=== PATIENT | female | born 1950 | race Caucasian/White ===

== ENCOUNTER → 2020-06-04 | Outpatient (REF) | payer MEDICARE ==
[2020-06-04 14:04] LABS: APPEARANCE, URINE HAZY (CLEAR); BACTERIA, URINE AUTO 1+ (NEGATIVE); BILIRUBIN, URINE AUTO NEGATIVE (NEGATIVE); BLOOD, URINE BLOOD NEGATIVE (NEGATIVE); COLOR, URINE YELLOW (YELLOW); GLUCOSE, URINE (UA) AUTO NEGATIVE (NEGATIVE); KETONE, URINE AUTO NEGATIVE (NEGATIVE); LEUKOCYTE ESTERASE, URINE AUTO 3+ (NEGATIVE); NITRITE, URINE AUTO NEGATIVE (NEGATIVE); PROTEIN, URINE AUTO NEGATIVE (NEGATIVE); RBC, URINE AUTO 3 /HPF (0-3); SPECIFIC GRAVITY URINE AUTO 1.004 (1.002-1.035); SQUAMOUS EPITHELIAL CELL UR AU 4 /HPF (0-6); UROBILINOGEN, URINE AUTO 0.2 mg/dL (0.0-2.0); WBC, URINE AUTO 72 /HPF (0-3)
== END ==
LOC: M SFHCPLAZ 09:58
PROVIDERS: ATTEND Physician Assistant Medical
DX: R30.0 Dysuria (principal); E66.9 Obesity, unspecified; I10 Essential (primary) hypertension; Z13.1 Encounter for screening for diabetes mellitus; Z13.220 Encounter for screening for lipoid disorders

== ENCOUNTER → 2020-06-05 | Outpatient (REF) | payer MEDICARE ==
[2020-06-05 18:07] LABS: BASO % 0.4 % (0.0-1.0); EOS # 0.1 10^3/uL (0.0-0.5); EOS % 0.9 % (0.0-3.0); HEMATOCRIT 43.4 % (36.0-47.0); HEMOGLOBIN 13.8 g/dl (12.0-15.5); LYMPH # 2.3 10^3/uL (1.5-5.0); LYMPH % 23.5 % (24.0-44.0); MEAN CORPUSCULAR HEMOGLOBIN 30.1 pg (27.0-33.0); MEAN CORPUSCULAR HGB CONC 31.8 g/dl (32.0-36.5); MEAN CORPUSCULAR VOLUME 94.6 fl (80.0-96.0); MONO # 0.9 10^3/uL (0.0-0.8); MONO % 9.4 % (0.0-5.0); NEUTROPHILS # 6.4 10^3/uL (1.5-8.5); NEUTROPHILS % 65.5 % (36.0-66.0); PLATELET COUNT, AUTOMATED 232 10^3/uL (150-450); RED BLOOD COUNT 4.59 10^6/uL (4.00-5.40); WHITE BLOOD COUNT 9.8 10^3/uL (4.0-10.0)
[2020-06-05 18:22] LABS: HEMOGLOBIN A1c 6.4 %
[2020-06-05 18:41] LABS: ALBUMIN 3.5 GM/DL (3.2-5.2); ALT/SGPT 18 U/L (12-78); BILIRUBIN,TOTAL 0.6 MG/DL (0.2-1.0); BLOOD UREA NITROGEN 11 MG/DL (7-18); C REACTIVE PROTEIN QUANTITATIV 0.46 MG/DL (0.00-0.30); CALCIUM LEVEL 10.4 MG/DL (8.8-10.2); CARBON DIOXIDE LEVEL 36 MEQ/L (21-32); CHLORIDE LEVEL 102 MEQ/L (98-107); CHOLESTEROL LEVEL 144 MG/DL (<200); CHOLESTEROL RISK RATIO 2.482 (<5); CREATININE FOR GFR 0.72 MG/DL (0.55-1.30); FREE T4 0.95 NG/DL (0.76-1.46); GLOMERULAR FILTRATION RATE > 60.0 (>39); GLUCOSE, FASTING 86 MG/DL (70-100); HDL CHOLESTEROL 58 MG/DL (>40); LDL CHOLESTEROL 71 MG/DL (<100); NON-HDL-C 86 MG/DL; POTASSIUM SERUM 3.6 MEQ/L (3.5-5.1); RHEUMATOID FACTOR QUANT < 10.0 IU/ML (<15.0); SODIUM LEVEL 140 MEQ/L (136-145); TOTAL PROTEIN 6.7 GM/DL (6.4-8.2); TRIGLYCERIDES LEVEL 75 MG/DL (<150)
[2020-06-05 18:42] LABS: ERYTHROCYTE SEDIMENTATION RATE 29 mm/hr (0-30)
[2020-06-07 11:13] LABS: DRVV SCREEN 39.5 SEC
== END ==
LOC: M SFHCPLAZ 15:27
PROVIDERS: ATTEND Physician Assistant Medical
DX: E66.9 Obesity, unspecified (principal); Z13.1 Encounter for screening for diabetes mellitus; I10 Essential (primary) hypertension; Z13.220 Encounter for screening for lipoid disorders; R30.0 Dysuria; M51.36 Other intervertebral disc degeneration, lumbar region

== ENCOUNTER 2020-07-31 20:59 | Emergency (ER) | payer MEDICARE ==
[~2020-07-31] VITALS: Ht 165.1 cm; Wt 89.1 kg
[2020-07-31] MEDS ORDERED: SYMB16INH PO (21:42)
[2020-07-31] MEDS ORDERED: LISI10TA22 PO (21:42)
[2020-07-31] MEDS ORDERED: VITA50005 PO (21:42)
[2020-07-31] MEDS ORDERED: COMBAER6 PO (21:42)
[2020-07-31] MEDS ORDERED: CHLO125TA PO (21:42)
[2020-07-31] MEDS ORDERED: CETI-24 PO (21:42)
[2020-07-31] MEDS ORDERED: SIMV10TA21 PO (21:42)
[2020-07-31] MEDS ORDERED: IPRA0.00 PO (21:42)
[2020-07-31 22:15] LABS: BASO # 0.1 10^3/uL (0.0-0.2); BASO % 0.4 % (0.0-1.0); EOS # 0.1 10^3/uL (0.0-0.5); EOS % 0.8 % (0.0-3.0); HEMATOCRIT 42.6 % (36.0-47.0); HEMOGLOBIN 13.6 g/dl (12.0-15.5); LYMPH # 2.4 10^3/uL (1.5-5.0); LYMPH % 19.9 % (24.0-44.0); MEAN CORPUSCULAR HEMOGLOBIN 29.2 pg (27.0-33.0); MEAN CORPUSCULAR HGB CONC 31.9 g/dl (32.0-36.5); MEAN CORPUSCULAR VOLUME 91.4 fl (80.0-96.0); MONO # 0.8 10^3/uL (0.0-0.8); NEUTROPHILS # 8.6 10^3/uL (1.5-8.5); NEUTROPHILS % 71.5 % (36.0-66.0); PLATELET COUNT, AUTOMATED 234 10^3/uL (150-450); RED BLOOD COUNT 4.66 10^6/uL (4.00-5.40); WHITE BLOOD COUNT 12.1 10^3/uL (4.0-10.0)
[2020-07-31 22:27] LABS: BLOOD UREA NITROGEN 14 MG/DL (7-18); CALCIUM LEVEL 9.7 MG/DL (8.8-10.2); CARBON DIOXIDE LEVEL 32 MEQ/L (21-32); CHLORIDE LEVEL 101 MEQ/L (98-107); CK-MB VALUE MASS 1.6 NG/ML (<3.6); CPK CREATINE PHOSPHOKINASE 91 U/L (26-192); CREATININE FOR GFR 0.83 MG/DL (0.55-1.30); GLOMERULAR FILTRATION RATE > 60.0 (>39); GLUCOSE, FASTING 214 MG/DL (70-100); MB/CK RELATIVE INDEX 1.76 (< OR =4); POTASSIUM SERUM 3.3 MEQ/L (3.5-5.1); SODIUM LEVEL 138 MEQ/L (136-145); TROPONIN I < 0.02 NG/ML (< 0.10)
[2020-07-31 23:47] LABS: HEMOGLOBIN A1c 6.3 %
[2020-08-01 00:15] VITALS: BP 124/58
--- NOTE | 2020-08-01 00:38 | ECGEPIP ---
[facility] - ED Test Date: 2020-07-31 Pat Name: JUSTIN CANCINO Department: Room: - Gender: Female Head Librarian: tarah : 1950 Requested By: Wes Kim Order Number: [id number] Reading MD: Wes Arriaga Measurements Intervals [place] Rate: 88 P: 64 CA: 168 QRS: 11 QRSD: 94 T: 75 QT: 456 QTc: 551 Interpretive Statements Normal sinus rhythm Possible Inferior infarct , age undetermined Prolonged QTc NO PRIORS FOR COMPARISON Electronically Signed on 08-01-2020 0:38:19 EST by Wes Arriaga
== END 2020-08-01 00:36 | disposition home or self-care (01) ==
LOC: M ED 20:59
DX: R68.2 Dry mouth, unspecified (principal); R53.1 Weakness; T45.0X5A Adverse effect of antiallergic and antiemetic drugs, initial encounter; J44.9 Chronic obstructive pulmonary disease, unspecified; I10 Essential (primary) hypertension; E78.5 Hyperlipidemia, unspecified; J30.9 Allergic rhinitis, unspecified; K21.9 Gastro-esophageal reflux disease without esophagitis; F32.9 Major depressive disorder, single episode, unspecified; F17.200 Nicotine dependence, unspecified, uncomplicated; Z88.2 Allergy status to sulfonamides

== ENCOUNTER → 2020-08-06 | Outpatient (REF) | payer MEDICARE ==
[~2020-08-06] MED LIST: CETI-24 PO; CHLO125TA PO; COMBAER6 PO; IPRA0.00 PO; LISI10TA22 PO; SIMV10TA21 PO; SYMB16INH PO; VITA50005 PO
[2020-08-06 17:53] LABS: APPEARANCE, URINE CLEAR (CLEAR); BACTERIA, URINE AUTO NEGATIVE (NEGATIVE); BILIRUBIN, URINE AUTO NEGATIVE (NEGATIVE); BLOOD, URINE BLOOD NEGATIVE (NEGATIVE); COLOR, URINE STRAW (YELLOW); GLUCOSE, URINE (UA) AUTO NEGATIVE (NEGATIVE); KETONE, URINE AUTO NEGATIVE (NEGATIVE); LEUKOCYTE ESTERASE, URINE AUTO 2+ (NEGATIVE); NITRITE, URINE AUTO NEGATIVE (NEGATIVE); PROTEIN, URINE AUTO NEGATIVE (NEGATIVE); RBC, URINE AUTO 1 /HPF (0-3); SPECIFIC GRAVITY URINE AUTO 1.003 (1.002-1.035); SQUAMOUS EPITHELIAL CELL UR AU 2 /HPF (0-6); UROBILINOGEN, URINE AUTO 0.2 mg/dL (0.0-2.0); WBC, URINE AUTO 49 /HPF (0-3)
== END ==
LOC: M SFHCPLAZ 17:17
PROVIDERS: ATTEND Physician Assistant Medical
DX: R30.0 Dysuria (principal)

== ENCOUNTER → 2020-09-19 | Outpatient (REF) | payer MEDICARE ==
[2020-09-19 13:19] LABS: BASO % 0.2 % (0.0-1.0); EOS # 0.2 10^3/uL (0.0-0.5); EOS % 1.6 % (0.0-3.0); HEMATOCRIT 43.3 % (36.0-47.0); HEMOGLOBIN 13.8 g/dl (12.0-15.5); LYMPH # 2.4 10^3/uL (1.5-5.0); LYMPH % 18.1 % (24.0-44.0); MEAN CORPUSCULAR HEMOGLOBIN 29.7 pg (27.0-33.0); MEAN CORPUSCULAR HGB CONC 31.9 g/dl (32.0-36.5); MEAN CORPUSCULAR VOLUME 93.1 fl (80.0-96.0); MONO # 1.3 10^3/uL (0.0-0.8); MONO % 9.3 % (2.0-8.0); NEUTROPHILS # 9.5 10^3/uL (1.5-8.5); NEUTROPHILS % 70.1 % (36.0-66.0); PLATELET COUNT, AUTOMATED 236 10^3/uL (150-450); RED BLOOD COUNT 4.65 10^6/uL (4.00-5.40); WHITE BLOOD COUNT 13.5 10^3/uL (4.0-10.0)
[2020-09-19 14:09] LABS: ALBUMIN 3.4 GM/DL (3.2-5.2); ALT/SGPT 26 U/L (12-78); BILIRUBIN,TOTAL 0.6 MG/DL (0.2-1.0); BLOOD UREA NITROGEN 15 MG/DL (7-18); CALCIUM LEVEL 10.3 MG/DL (8.8-10.2); CARBON DIOXIDE LEVEL 35 MEQ/L (21-32); CHLORIDE LEVEL 97 MEQ/L (98-107); CREATININE FOR GFR 0.79 MG/DL (0.55-1.30); GLOMERULAR FILTRATION RATE > 60.0 (>39); GLUCOSE, FASTING 234 MG/DL (70-100); POTASSIUM SERUM 4.1 MEQ/L (3.5-5.1); PTH INTACT 93.2 PG/ML (18.5-88.0); SODIUM LEVEL 137 MEQ/L (136-145); TOTAL 25(OH) VITAMIN D 32.9 NG/ML (30.0-100.0); TOTAL PROTEIN 6.2 GM/DL (6.4-8.2)
== END ==
LOC: M SFHCPLAZ 10:37
PROVIDERS: ATTEND Physician Assistant Medical
DX: J69.0 Pneumonitis due to inhalation of food and vomit (principal); E55.9 Vitamin D deficiency, unspecified

== ENCOUNTER → 2020-09-24 | Outpatient (REF) | payer MEDICARE ==
[2020-09-24 13:09] LABS: BASO % 0.3 % (0.0-1.0); EOS # 0.2 10^3/uL (0.0-0.5); EOS % 1.6 % (0.0-3.0); HEMATOCRIT 39.1 % (36.0-47.0); HEMOGLOBIN 12.7 g/dl (12.0-15.5); LYMPH # 1.8 10^3/uL (1.5-5.0); LYMPH % 18.5 % (24.0-44.0); MEAN CORPUSCULAR HGB CONC 32.5 g/dl (32.0-36.5); MEAN CORPUSCULAR VOLUME 92.4 fl (80.0-96.0); MONO % 9.5 % (2.0-8.0); NEUTROPHILS # 6.9 10^3/uL (1.5-8.5); NEUTROPHILS % 69.8 % (36.0-66.0); PLATELET COUNT, AUTOMATED 190 10^3/uL (150-450); RED BLOOD COUNT 4.23 10^6/uL (4.00-5.40)
[2020-09-24 13:32] LABS: ALBUMIN 3.3 GM/DL (3.2-5.2); ALT/SGPT 22 U/L (12-78); BILIRUBIN,TOTAL 0.9 MG/DL (0.2-1.0); BLOOD UREA NITROGEN 9 MG/DL (7-18); CALCIUM LEVEL 10.2 MG/DL (8.8-10.2); CARBON DIOXIDE LEVEL 35 MEQ/L (21-32); CHLORIDE LEVEL 103 MEQ/L (98-107); CREATININE FOR GFR 0.66 MG/DL (0.55-1.30); GLOMERULAR FILTRATION RATE > 60.0 (>39); GLUCOSE, FASTING 151 MG/DL (70-100); MAGNESIUM LEVEL 1.7 MG/DL (1.8-2.4); PTH INTACT 85.2 PG/ML (18.5-88.0); SODIUM LEVEL 141 MEQ/L (136-145); TOTAL 25(OH) VITAMIN D 24.4 NG/ML (30.0-100.0); TOTAL PROTEIN 6.2 GM/DL (6.4-8.2)
== END ==
LOC: M SFHCPLAZ 11:00
PROVIDERS: ATTEND Physician Assistant Medical
DX: E55.9 Vitamin D deficiency, unspecified (principal); J44.1 Chronic obstructive pulmonary disease with (acute) exacerbation

== ENCOUNTER → 2020-10-24 | Outpatient (REF) | payer MEDICARE ==
[2020-10-24 13:34] LABS: BASO # 0.1 10^3/uL (0.0-0.2); BASO % 0.5 % (0.0-1.0); EOS # 0.1 10^3/uL (0.0-0.5); EOS % 0.7 % (0.0-3.0); HEMATOCRIT 41.3 % (36.0-47.0); HEMOGLOBIN 13.4 g/dl (12.0-15.5); LYMPH # 1.6 10^3/uL (1.5-5.0); LYMPH % 17.1 % (24.0-44.0); MEAN CORPUSCULAR HGB CONC 32.4 g/dl (32.0-36.5); MEAN CORPUSCULAR VOLUME 92.6 fl (80.0-96.0); MONO # 0.8 10^3/uL (0.0-0.8); MONO % 8.8 % (2.0-8.0); NEUTROPHILS # 6.8 10^3/uL (1.5-8.5); NEUTROPHILS % 72.6 % (36.0-66.0); PLATELET COUNT, AUTOMATED 223 10^3/uL (150-450); RED BLOOD COUNT 4.46 10^6/uL (4.00-5.40); WHITE BLOOD COUNT 9.4 10^3/uL (4.0-10.0)
[2020-10-24 14:02] LABS: ALBUMIN 3.6 GM/DL (3.2-5.2); ALT/SGPT 18 U/L (12-78); AMYLASE 42 U/L (25-115); BILIRUBIN,TOTAL 0.6 MG/DL (0.2-1.0); BLOOD UREA NITROGEN 9 MG/DL (7-18); CALCIUM LEVEL 10.6 MG/DL (8.8-10.2); CARBON DIOXIDE LEVEL 32 MEQ/L (21-32); CHLORIDE LEVEL 103 MEQ/L (98-107); CREATININE FOR GFR 0.64 MG/DL (0.55-1.30); GLOMERULAR FILTRATION RATE > 60.0 (>39); GLUCOSE, FASTING 122 MG/DL (70-100); LIPASE 78 U/L (73-393); POTASSIUM SERUM 3.5 MEQ/L (3.5-5.1); SODIUM LEVEL 142 MEQ/L (136-145); TOTAL PROTEIN 6.7 GM/DL (6.4-8.2)
== END ==
LOC: M PLALAB 10:33
PROVIDERS: ATTEND Physician Assistant Medical
DX: R10.11 Right upper quadrant pain (principal); R19.7 Diarrhea, unspecified; E83.42 Hypomagnesemia

== ENCOUNTER → 2020-10-25 | Outpatient (CLI) | payer MEDICARE ==
--- NOTE | 2020-10-25 09:52 | REP ---
INDICATION: RUQ ABD PAIN COMPARISON: None. TECHNIQUE: Real time rachel scale ultrasound examination using curved array transducer. FINDINGS: Liver is normal in contour, size, and echogenicity with few scattered relatively benign appearing cysts measuring up to 2.6 cm in the right lobe and 3.1 cm in the left lobe. Pancreas is normal in appearance. The gallbladder is normal and without gallstones, wall thickening, or pericholecystic fluid. No biliary ductal dilatation is appreciated and the common bile duct measures 4.8 mm diameter. Right kidney is normal in reniform shape without hydronephrosis and measures 11.1 x 5.9 x 4.5 cm. No ascites in the visualized right upper quadrant. IMPRESSION: 1. Relatively normal examination with normal gallbladder and biliary system. 2. Few hepatic benign appearing cysts by ultrasound. <Electronically signed by Stephan Lockhart > 10/25/20 0904
== END ==
LOC: M RAD 09:02
PROVIDERS: ATTEND Physician Assistant
DX: R10.11 Right upper quadrant pain (principal); K76.89 Other specified diseases of liver

== ENCOUNTER → 2021-04-16 | Outpatient (REF) | payer MEDICARE ==
[~2021-04-16] MED LIST changes: +ERGO500029 PO; -VITA50005 PO
== END ==
LOC: M SFHCPLAZ 17:01
PROVIDERS: ATTEND Physician Assistant
DX: R05.9 Cough, unspecified (principal)
CPT/HCPCS: 87426; 96372; G0463; J0696; J1040; U0003

== ENCOUNTER → 2021-05-07 | Outpatient (CLI) | payer MEDICARE | LOC: M PLAIMG 15:40 | PROVIDERS: ATTEND Physician Assistant | DX: R91.8 Other nonspecific abnormal finding of lung field (principal); J98.11 Atelectasis; R06.02 Shortness of breath; Z20.822 Contact with and (suspected) exposure to COVID-19 | CPT/HCPCS: 71046; 87426; G0463; U0003 ==

== ENCOUNTER → 2021-05-16 | Outpatient (CLI) | payer MEDICARE ==
[2021-05-16 17:55] LABS: BASO % 0.3 % (0.0-1.0); EOS % 0.3 % (0.0-3.0); HEMATOCRIT 43.3 % (36.0-47.0); HEMOGLOBIN 14.2 g/dl (12.0-15.5); LYMPH # 2.1 10^3/uL (1.5-5.0); LYMPH % 14.5 % (24.0-44.0); MEAN CORPUSCULAR HEMOGLOBIN 29.5 pg (27.0-33.0); MEAN CORPUSCULAR HGB CONC 32.8 g/dl (32.0-36.5); MONO # 1.3 10^3/uL (0.0-0.8); MONO % 9.1 % (2.0-8.0); NEUTROPHILS # 10.7 10^3/uL (1.5-8.5); NEUTROPHILS % 75.4 % (36.0-66.0); PLATELET COUNT, AUTOMATED 221 10^3/uL (150-450); RED BLOOD COUNT 4.81 10^6/uL (4.00-5.40); WHITE BLOOD COUNT 14.1 10^3/uL (4.0-10.0)
[2021-05-16 18:29] LABS: ALBUMIN 3.6 GM/DL (3.2-5.2); ALT/SGPT 24 U/L (12-78); BILIRUBIN,TOTAL 0.7 MG/DL (0.2-1.0); BLOOD UREA NITROGEN 11 MG/DL (7-18); CALCIUM LEVEL 10.3 MG/DL (8.8-10.2); CARBON DIOXIDE LEVEL 36 MEQ/L (21-32); CHLORIDE LEVEL 92 MEQ/L (98-107); CREATININE FOR GFR 0.84 MG/DL (0.55-1.30); GLOMERULAR FILTRATION RATE > 60.0 (>39); GLUCOSE, FASTING 349 MG/DL (70-100); POTASSIUM SERUM 3.3 MEQ/L (3.5-5.1); SODIUM LEVEL 136 MEQ/L (136-145); TOTAL PROTEIN 6.9 GM/DL (6.4-8.2)
[2021-05-16 19:11] LABS: HEMOGLOBIN A1c 11.7 %
== END ==
LOC: M PLALAB 15:23
PROVIDERS: ATTEND Physician Assistant Medical
DX: E11.65 Type 2 diabetes mellitus with hyperglycemia (principal)
CPT/HCPCS: 36415; 80053; 83036; 85025; G0463

== ENCOUNTER → 2021-07-08 | Outpatient (CLI) | payer MEDICARE | LOC: M PLALAB 15:43 | PROVIDERS: ATTEND Physician Assistant Medical | DX: R19.7 Diarrhea, unspecified (principal); E11.65 Type 2 diabetes mellitus with hyperglycemia ==

== ENCOUNTER → 2021-08-27 | Outpatient (CLI) | payer MEDICARE ==
[~2021-08-27] MED LIST changes: +AMLO2.5T3 PO; +ATIV1TAB7 PO; +COMBAER6 INH; -COMBAER6 PO; +FLUN25SP NARES; +JARD1TAB PO; +LEVO500T4 PO; +METR-265 PO; +NICO1DIS10 TOP; +SYMB16INH INH; -SYMB16INH PO; +VITA100093 PO
== END ==
LOC: M PLAIMG 14:07
PROVIDERS: ATTEND Physician Assistant Medical
DX: R91.8 Other nonspecific abnormal finding of lung field (principal); J18.9 Pneumonia, unspecified organism

== ENCOUNTER → 2021-09-09 | Outpatient (CLI) | payer MEDICARE | LOC: M PLARAD 12:25 | PROVIDERS: ATTEND Internal Medicine Medical Oncology | DX: R91.8 Other nonspecific abnormal finding of lung field (principal); J98.4 Other disorders of lung | CPT/HCPCS: 78815; A9552 ==

== ENCOUNTER → 2021-09-12 | Outpatient (CLI) | payer MEDICARE ==
[~2021-09-12] MED LIST changes: +BUDE10.7 IH; +D3 +TAB PO; +META0.52 PO; +MIRA3350 PO; +POTA-151 PO
[2021-09-12 13:37] LABS: PLATELET COUNT, AUTOMATED 378 10^3/uL (150-450)
[2021-09-12 13:47] LABS: INR 0.98; PROTHROMBIN TIME 13.4 SECONDS (12.7-14.5)
== END ==
LOC: M PLALAB 10:48
PROVIDERS: ATTEND Internal Medicine Pulmonary Disease
DX: Z01.812 Encounter for preprocedural laboratory examination (principal)

== ENCOUNTER → 2021-09-12 | Outpatient (CLI) | payer MEDICARE | LOC: M LABSMTC 09:59 | PROVIDERS: ATTEND Anesthesiology | DX: Z01.812 Encounter for preprocedural laboratory examination (principal); Z20.822 Contact with and (suspected) exposure to COVID-19 ==

== ENCOUNTER 2021-09-16 09:44 | Day surgery (SDC) | payer MEDICARE ==
[~2021-09-16] VITALS: Ht 165.1 cm; Wt 74.4 kg
[~2021-09-16 09:44] MED LIST changes: +ALBUTEROL SULFATE 2.5 MG/0.5 ML INH NEB SOLN INH ONE; -BUDE10.7 IH; +CETACAINE SPRAY 5GM As Ordered ONE; -D3 +TAB PO; +EPINEPHrine 1MG/10ML SYRINGE 1.5IN As Ordered ONE; +LIDOCAINE 1% SDV 30ML VIAL As Ordered ONE; +LIDOCAINE 2% 100MG/5ML SDV (FOR ANES.) As Ordered ONE; +LIDOCAINE 4% INJ 5ML AMP INH ONE; +LR 1,000 ML IV ONE; -META0.52 PO; +MIDAZOLAM INJ 2MG/2ML VIAL (J2250 PER 1MG) As Ordered ONE; -MIRA3350 PO; +ONDANSETRON 4MG/2ML VIAL As Ordered ONE; -POTA-151 PO; +THROMBIN SOLN 5,000 UNITS VIAL As Ordered ONE; +dexameTHASONE 4 MG/ML 1ML VIAL (J1100 PER 1MG) As Ordered ONE; +fentaNYL 100 MCG/2 ML INJECTION As Ordered ONE; +propofoL 200 MG/20 ML VIAL As Ordered ONE
[2021-09-16] MEDS ORDERED: ROCURONIUM BROMIDE 50 MG/5 ML VIAL As Ordered ONE (10:42)
[2021-09-16] MEDS ORDERED: PHENYLephrine 500MCG 5ML (100MCG/ML) SYRINGE As Ordered ONE ×2 (10:48→11:16)
[2021-09-16] MEDS ORDERED: SUGAMMADEX SODIUM 500 MG/5 ML VIAL (BRIDION) As Ordered ONE (11:35)
[2021-09-16] MEDS ORDERED: LR 1,000 ML IV SCH (12:20)
[2021-09-16] MEDS ORDERED: ONDANSETRON 4MG/2ML VIAL IV PRN (12:20)
[2021-09-16] MEDS ORDERED: oxyCODONE 5MG TAB PO PRN (12:20)
[2021-09-16] MEDS ORDERED: fentaNYL 100 MCG/2 ML INJECTION IV PRN (12:20)
[2021-09-16 13:29] VITALS: BP 150/72
[2021-09-17] MEDS ORDERED: BUDE10.7 IH (14:06)
[2021-09-17] MEDS ORDERED: POTA-151 PO (16:07)
[2021-09-19] MEDS ORDERED: META0.52 PO (08:20)
[2021-09-19] MEDS ORDERED: D3 +TAB PO (08:20)
[2021-09-19] MEDS ORDERED: MIRA3350 PO (08:20)
== END 2021-09-16 13:31 | disposition home or self-care (01) ==
LOC: M SDC 09:44
PROVIDERS: ATTEND Internal Medicine Pulmonary Disease
DX: C34.11 Malignant neoplasm of upper lobe, right bronchus or lung (principal); C77.9 Secondary and unspecified malignant neoplasm of lymph node, unspecified; J96.11 Chronic respiratory failure with hypoxia; I10 Essential (primary) hypertension; M81.0 Age-related osteoporosis without current pathological fracture; E78.5 Hyperlipidemia, unspecified; Z99.81 Dependence on supplemental oxygen; F32.9 Major depressive disorder, single episode, unspecified; F17.218 Nicotine dependence, cigarettes, with other nicotine-induced disorders; Z88.2 Allergy status to sulfonamides; Z79.899 Other long term (current) drug therapy
CPT/HCPCS: 31625; 31654; 71045; 88173; 88305; J0171; J1100; J2250; J2370; J2405; J3010

== ENCOUNTER → 2021-09-19 | Outpatient (CLI) | payer MEDICARE ==
[~2021-09-19] MED LIST changes: -ALBUTEROL SULFATE 2.5 MG/0.5 ML INH NEB SOLN INH ONE; +BUDE10.7 IH; -CETACAINE SPRAY 5GM As Ordered ONE; +D3 +TAB PO; -EPINEPHrine 1MG/10ML SYRINGE 1.5IN As Ordered ONE; -LIDOCAINE 1% SDV 30ML VIAL As Ordered ONE; -LIDOCAINE 2% 100MG/5ML SDV (FOR ANES.) As Ordered ONE; -LIDOCAINE 4% INJ 5ML AMP INH ONE; -LR 1,000 ML IV ONE; +META0.52 PO; -MIDAZOLAM INJ 2MG/2ML VIAL (J2250 PER 1MG) As Ordered ONE; +MIRA3350 PO; +NICO14DI6 TD; -ONDANSETRON 4MG/2ML VIAL As Ordered ONE; +PANT40TA29 PO; +POTA-151 PO; -THROMBIN SOLN 5,000 UNITS VIAL As Ordered ONE; -dexameTHASONE 4 MG/ML 1ML VIAL (J1100 PER 1MG) As Ordered ONE; -fentaNYL 100 MCG/2 ML INJECTION As Ordered ONE; -propofoL 200 MG/20 ML VIAL As Ordered ONE
== END ==
LOC: M ONCR 12:59
PROVIDERS: ATTEND General Practice
DX: C34.11 Malignant neoplasm of upper lobe, right bronchus or lung (principal); F17.210 Nicotine dependence, cigarettes, uncomplicated; Z88.2 Allergy status to sulfonamides; Z79.899 Other long term (current) drug therapy

== ENCOUNTER → 2021-09-23 | Outpatient (CLI) | payer MEDICARE ==
[~2021-09-23] MED LIST changes: +ISOVUE-300 61% 50ML VIAL As Ordered ONE; +LIDOCAINE 1% MDV 20ML VIAL As Ordered ONE; +LORA2TAB14 PO; +MIDAZOLAM INJ 2MG/2ML VIAL (J2250 PER 1MG) As Ordered ONE; +NS 1,000 ML IV SCH; +ceFAZolin 2 GM/D5W 50 ML IV BAG (J0690 PER 500MG) As Ordered ONE; +ceFAZolin SOD 2 GM in IV 1 EA IV ONE; +diphenhydrAMINE 50MG/ML VIAL (J1200) As Ordered ONE; +fentaNYL 100 MCG/2 ML INJECTION As Ordered ONE
[2021-09-23 15:48] VITALS: BP 131/70
== END ==
LOC: M IRPRO 12:19
PROVIDERS: ATTEND Radiology Diagnostic Radiology
DX: C34.90 Malignant neoplasm of unspecified part of unspecified bronchus or lung (principal); Z88.2 Allergy status to sulfonamides; Z79.890 Hormone replacement therapy; Z79.899 Other long term (current) drug therapy
CPT/HCPCS: 36561; 99152; 99153; C1769; C1788; C1894; J0690; J1200; J1642; J1644; J2250; J3010

== ENCOUNTER → 2021-09-24 | Outpatient (REF) | payer MEDICARE ==
[~2021-09-24] MED LIST changes: -ISOVUE-300 61% 50ML VIAL As Ordered ONE; -LIDOCAINE 1% MDV 20ML VIAL As Ordered ONE; -MIDAZOLAM INJ 2MG/2ML VIAL (J2250 PER 1MG) As Ordered ONE; -NS 1,000 ML IV SCH; -ceFAZolin 2 GM/D5W 50 ML IV BAG (J0690 PER 500MG) As Ordered ONE; -ceFAZolin SOD 2 GM in IV 1 EA IV ONE; -diphenhydrAMINE 50MG/ML VIAL (J1200) As Ordered ONE; -fentaNYL 100 MCG/2 ML INJECTION As Ordered ONE
[2021-09-24 17:49] LABS: BLOOD UREA NITROGEN 8 MG/DL (7-18); CALCIUM LEVEL 10.2 MG/DL (8.8-10.2); CARBON DIOXIDE LEVEL 28 MEQ/L (21-32); CHLORIDE LEVEL 105 MEQ/L (98-107); CREATININE FOR GFR 0.57 MG/DL (0.55-1.30); GLOMERULAR FILTRATION RATE > 60.0 (>39); GLUCOSE, FASTING 136 MG/DL (70-100); POTASSIUM SERUM 3.7 MEQ/L (3.5-5.1); SODIUM LEVEL 142 MEQ/L (136-145)
== END ==
LOC: M SFHCPLAZ 16:47
PROVIDERS: ATTEND Physician Assistant Medical
DX: E87.6 Hypokalemia (principal)

== ENCOUNTER → 2021-10-08 | Outpatient (POV) | payer MEDICARE ==
[~2021-10-08] VITALS: Ht 165.1 cm; Wt 75.4 kg
[~2021-10-08] MED LIST changes: +HALO1TAB19 PO; +LIDO1CRE42 TOP; +ONDA-84 PO; +PROC10TA5 PO
[2021-10-08 13:45] VITALS: BP 134/83
== END ==
LOC: M IRPOV 13:24
PROVIDERS: ATTEND Radiology Diagnostic Radiology
DX: Z45.2 Encounter for adjustment and management of vascular access device (principal)

== ENCOUNTER → 2021-10-22 | Outpatient (RCR) | payer MEDICARE ==
[~2021-10-22] MED LIST changes: +FAMO20TA PO; +MAGICMW SSP; +OLAN1TAB16 PO
== END ==
LOC: M ONCR 09-26 09:09
PROVIDERS: ATTEND General Practice
DX: C34.11 Malignant neoplasm of upper lobe, right bronchus or lung (principal)

== ENCOUNTER 2021-10-28 15:20 | Inpatient (IN) | payer MEDICARE ==
[~2021-10-28] VITALS: Ht 165.1 cm; Wt 74.8 kg
[2021-10-28 16:07] LABS: BASO # 0.1 10^3/uL (0.0-0.2); BASO % 0.8 % (0.0-1.0); EOS % 0.1 % (0.0-3.0); HEMATOCRIT 44.5 % (36.0-47.0); HEMOGLOBIN 13.7 g/dl (12.0-15.5); LYMPH # 0.8 10^3/uL (1.5-5.0); LYMPH % 5.5 % (24.0-44.0); MEAN CORPUSCULAR HEMOGLOBIN 27.2 pg (27.0-33.0); MEAN CORPUSCULAR HGB CONC 30.8 g/dl (32.0-36.5); MEAN CORPUSCULAR VOLUME 88.5 fl (80.0-96.0); MONO # 1.1 10^3/uL (0.0-0.8); MONO % 8.1 % (2.0-8.0); NEUTROPHILS # 11.6 10^3/uL (1.5-8.5); NEUTROPHILS % 83.6 % (36.0-66.0); PLATELET COUNT, AUTOMATED 312 10^3/uL (150-450); RED BLOOD COUNT 5.03 10^6/uL (4.00-5.40); WHITE BLOOD COUNT 13.9 10^3/uL (4.0-10.0)
[2021-10-28] MEDS ORDERED: DIGOXIN INJ 0.5 MG/2 ML AMP (J1160) IV STA ×2 (16:07→17:41)
[2021-10-28 16:34] LABS: ALBUMIN 3.3 GM/DL (3.2-5.2); ALT/SGPT 19 U/L (12-78); BILIRUBIN,DIRECT < 0.1 MG/DL (0.0-0.2); BILIRUBIN,TOTAL 0.3 MG/DL (0.2-1.0); BLOOD UREA NITROGEN 7 MG/DL (7-18); CALCIUM LEVEL 11.2 MG/DL (8.8-10.2); CARBON DIOXIDE LEVEL 30 MEQ/L (21-32); CHLORIDE LEVEL 106 MEQ/L (98-107); CREATININE FOR GFR 0.59 MG/DL (0.55-1.30); FREE T4 0.93 NG/DL (0.76-1.46); GLOMERULAR FILTRATION RATE > 60.0 (>39); GLUCOSE, FASTING 108 MG/DL (70-100); POTASSIUM SERUM 4.2 MEQ/L (3.5-5.1); SODIUM LEVEL 143 MEQ/L (136-145); THYROID STIMULATING HORMONE 0.919 uIU/ML (0.358-3.740); TOTAL PROTEIN 6.9 GM/DL (6.4-8.2)
[2021-10-28 17:32] LABS: CK-MB VALUE MASS 1.7 NG/ML (<3.6)
[2021-10-28] MEDS ORDERED: ISOVUE-370 76% 100ML VIAL As Ordered ONE (17:53)
[2021-10-28] MEDS ORDERED: DEXTROSE 50% 50 ML SYRINGE IV PRN (20:55)
[2021-10-28] MEDS ORDERED: GLUCAGON INJ 1MG VIAL SC PRN (20:55)
[2021-10-28] MEDS ORDERED: GLUCOSE 4GM CHEW TABLET PO PRN (20:55)
[2021-10-28] MEDS: INSULIN LISPRO (NovoLOG) PER UNIT SC SCH (21:00)
[2021-10-28] MEDS: LR 1,000 ML IV SCH (22:26)
[2021-10-28] MEDS ORDERED: JARD1TAB PO (23:10)
[2021-10-28] MEDS ORDERED: FAMO20TA4 PO (23:10)
[2021-10-28] MEDS ORDERED: AMLO2.5T3 PO (23:10)
[2021-10-28] MEDS ORDERED: OXYM15SP2 (23:10)
[2021-10-28] MEDS ORDERED: BUDE10.7 INH (23:10)
[2021-10-28] MEDS ORDERED: HOME MED LIST COMPLETE! XX SCH (23:10)
[2021-10-29] VITALS (18 sets, daily range): BP systolic 108–144; BP diastolic 56–74; O2SAT 88–98
[2021-10-29] MEDS ORDERED: PROCHLORPERAZINE 5MG TAB PO PRN (01:40)
[2021-10-29] MEDS ORDERED: ONDANSETRON 4MG TAB PO PRN (01:40)
[2021-10-29] MEDS ORDERED: OXYMETAZOLINE 0.05% NASAL SPRAY (AFRIN) PRN (01:40)
[2021-10-29] MEDS ORDERED: MAGIC MOUTHWASH SUSPENSION BTL SSP PRN (01:40)
[2021-10-29] MEDS: COMBIVENT RESPIMAT 100-20MCG INHALER 4GM INH PRN ×4 (02:18→21:35)
[2021-10-29 05:54] LABS: BASO # 0.1 10^3/uL (0.0-0.2); BASO % 0.6 % (0.0-1.0); EOS % 0.1 % (0.0-3.0); HEMATOCRIT 38.2 % (36.0-47.0); HEMOGLOBIN 11.8 g/dl (12.0-15.5); LYMPH # 0.7 10^3/uL (1.5-5.0); LYMPH % 4.3 % (24.0-44.0); MEAN CORPUSCULAR HGB CONC 30.9 g/dl (32.0-36.5); MEAN CORPUSCULAR VOLUME 87.4 fl (80.0-96.0); MONO # 1.1 10^3/uL (0.0-0.8); MONO % 6.8 % (2.0-8.0); NEUTROPHILS # 14.2 10^3/uL (1.5-8.5); NEUTROPHILS % 86.6 % (36.0-66.0); PLATELET COUNT, AUTOMATED 320 10^3/uL (150-450); RED BLOOD COUNT 4.37 10^6/uL (4.00-5.40); WHITE BLOOD COUNT 16.3 10^3/uL (4.0-10.0)
[2021-10-29 06:12] LABS: ALBUMIN 2.6 GM/DL (3.2-5.2); ALT/SGPT 11 U/L (12-78); BILIRUBIN,TOTAL 0.3 MG/DL (0.2-1.0); BLOOD UREA NITROGEN 8 MG/DL (7-18); CALCIUM LEVEL 10.2 MG/DL (8.8-10.2); CARBON DIOXIDE LEVEL 33 MEQ/L (21-32); CHLORIDE LEVEL 106 MEQ/L (98-107); CREATININE FOR GFR 0.44 MG/DL (0.55-1.30); GLOMERULAR FILTRATION RATE > 60.0 (>39); GLUCOSE, FASTING 87 MG/DL (70-100); POTASSIUM SERUM 3.8 MEQ/L (3.5-5.1); SODIUM LEVEL 144 MEQ/L (136-145); TOTAL PROTEIN 6.1 GM/DL (6.4-8.2)
[2021-10-29] MEDS: LR 1,000 ML IV SCH (06:45)
[2021-10-29] MEDS: INSULIN LISPRO (NovoLOG) PER UNIT SC SCH ×4 (07:30→19:46)
[2021-10-29] MEDS: SYMBICORT 160/4.5MCG INHALER 6GM INH SCH ×2 (08:08→21:35)
[2021-10-29] MEDS: OLANZapine 5 MG TAB PO SCH (08:42)
[2021-10-29] MEDS: FAMOTIDINE 20 MG TAB PO SCH ×2 (08:42→21:27)
[2021-10-29] MEDS: VITAMIN D 1,000 INTERNATIONAL UNITS TABLET PO SCH (08:42)
[2021-10-29] MEDS ORDERED: EMLA CREAM 5GM TUBE (LIDOCAINE/PRILOCAINE) TOP PRN (09:00)
[2021-10-29] MEDS: RIVAROXABAN 20MG TAB (XARELTO) PO SCH (17:02)
[2021-10-29] MEDS: SIMVASTATIN 10 MG TAB PO SCH (21:27)
[2021-10-30] VITALS (13 sets, daily range): BP systolic 119–133; BP diastolic 55–81; O2SAT 95–97
[2021-10-30 05:38] LABS: BASO # 0.1 10^3/uL (0.0-0.2); BASO % 0.6 % (0.0-1.0); EOS % 0.2 % (0.0-3.0); HEMATOCRIT 38.2 % (36.0-47.0); HEMOGLOBIN 11.9 g/dl (12.0-15.5); LYMPH # 0.7 10^3/uL (1.5-5.0); LYMPH % 5.5 % (24.0-44.0); MEAN CORPUSCULAR HEMOGLOBIN 27.2 pg (27.0-33.0); MEAN CORPUSCULAR HGB CONC 31.2 g/dl (32.0-36.5); MEAN CORPUSCULAR VOLUME 87.2 fl (80.0-96.0); MONO % 8.5 % (2.0-8.0); NEUTROPHILS # 10.3 10^3/uL (1.5-8.5); PLATELET COUNT, AUTOMATED 338 10^3/uL (150-450); RED BLOOD COUNT 4.38 10^6/uL (4.00-5.40); WHITE BLOOD COUNT 12.2 10^3/uL (4.0-10.0)
[2021-10-30 06:11] LABS: ALBUMIN 2.8 GM/DL (3.2-5.2); ALT/SGPT 15 U/L (12-78); BILIRUBIN,TOTAL 0.4 MG/DL (0.2-1.0); BLOOD UREA NITROGEN 6 MG/DL (7-18); CALCIUM LEVEL 9.6 MG/DL (8.8-10.2); CARBON DIOXIDE LEVEL 34 MEQ/L (21-32); CHLORIDE LEVEL 104 MEQ/L (98-107); CREATININE FOR GFR 0.42 MG/DL (0.55-1.30); GLOMERULAR FILTRATION RATE > 60.0 (>39); GLUCOSE, FASTING 74 MG/DL (70-100); MAGNESIUM LEVEL 1.6 MG/DL (1.8-2.4); POTASSIUM SERUM 3.3 MEQ/L (3.5-5.1); SODIUM LEVEL 140 MEQ/L (136-145); TOTAL PROTEIN 6.3 GM/DL (6.4-8.2)
[2021-10-30] MEDS: SYMBICORT 160/4.5MCG INHALER 6GM INH SCH ×2 (07:07→20:01)
[2021-10-30] MEDS: INSULIN LISPRO (NovoLOG) PER UNIT SC SCH ×4 (07:30→20:22)
[2021-10-30] MEDS ORDERED: POTASSIUM CHLORIDE 10% LIQ 20 MEQ/15 ML UDC PO ONE (07:40)
[2021-10-30] MEDS: OLANZapine 5 MG TAB PO SCH (07:56)
[2021-10-30] MEDS: guaiFENesin ER 600 MG TAB PO SCH ×2 (07:57→20:30)
[2021-10-30] MEDS: FAMOTIDINE 20 MG TAB PO SCH ×2 (07:57→20:30)
[2021-10-30] MEDS: MAG SULF 1GM/100ML (MAG RUN) 1 GM in IV 1 EA IV SCH ×2 (07:57→07:58)
[2021-10-30] MEDS: VITAMIN D 1,000 INTERNATIONAL UNITS TABLET PO SCH (07:57)
[2021-10-30 08:23] LABS: NT-PRO BNP 183 PG/ML (<125)
[2021-10-30] MEDS: methylPREDNISolone 125MG 2ML VIAL IV SCH ×2 (09:15→17:46)
[2021-10-30] MEDS: IPRATROPIUM 0.5MG/ALBUTEROL 2.5MG INH SOL UD 3ML (DUONEB) NEB PRN ×2 (11:49→16:02)
[2021-10-30] MEDS: SODIUM CHLORIDE NASAL 0.65% SPRAY BTL (OCEAN) SCH ×2 (14:16→20:30)
[2021-10-30] MEDS: RIVAROXABAN 20MG TAB (XARELTO) PO SCH (17:46)
[2021-10-30] MEDS: SIMVASTATIN 10 MG TAB PO SCH (20:30)
[2021-10-31] VITALS (8 sets, daily range): BP systolic 118–134; BP diastolic 56–69; O2SAT 91–94
[2021-10-31] MEDS: methylPREDNISolone 125MG 2ML VIAL IV SCH ×2 (00:47→08:05)
[2021-10-31 06:29] LABS: BASO % 0.1 % (0.0-1.0); HEMATOCRIT 38.7 % (36.0-47.0); HEMOGLOBIN 12.5 g/dl (12.0-15.5); LYMPH # 0.2 10^3/uL (1.5-5.0); LYMPH % 1.7 % (24.0-44.0); MEAN CORPUSCULAR HEMOGLOBIN 28.2 pg (27.0-33.0); MEAN CORPUSCULAR HGB CONC 32.3 g/dl (32.0-36.5); MEAN CORPUSCULAR VOLUME 87.2 fl (80.0-96.0); MONO # 0.1 10^3/uL (0.0-0.8); MONO % 0.9 % (2.0-8.0); NEUTROPHILS # 13.5 10^3/uL (1.5-8.5); NEUTROPHILS % 95.9 % (36.0-66.0); PLATELET COUNT, AUTOMATED 389 10^3/uL (150-450); RED BLOOD COUNT 4.44 10^6/uL (4.00-5.40); WHITE BLOOD COUNT 14.1 10^3/uL (4.0-10.0)
[2021-10-31] MEDS: IPRATROPIUM 0.5MG/ALBUTEROL 2.5MG INH SOL UD 3ML (DUONEB) NEB PRN (06:32)
[2021-10-31 06:48] LABS: ALBUMIN 2.8 GM/DL (3.2-5.2); ALT/SGPT 13 U/L (12-78); BILIRUBIN,TOTAL 0.3 MG/DL (0.2-1.0); BLOOD UREA NITROGEN 15 MG/DL (7-18); CALCIUM LEVEL 10.7 MG/DL (8.8-10.2); CARBON DIOXIDE LEVEL 30 MEQ/L (21-32); CHLORIDE LEVEL 105 MEQ/L (98-107); CREATININE FOR GFR 0.51 MG/DL (0.55-1.30); GLOMERULAR FILTRATION RATE > 60.0 (>39); GLUCOSE, FASTING 146 MG/DL (70-100); POTASSIUM SERUM 3.9 MEQ/L (3.5-5.1); SODIUM LEVEL 143 MEQ/L (136-145); TOTAL PROTEIN 6.8 GM/DL (6.4-8.2)
[2021-10-31] MEDS: SYMBICORT 160/4.5MCG INHALER 6GM INH SCH (08:00)
[2021-10-31] MEDS: SODIUM CHLORIDE NASAL 0.65% SPRAY BTL (OCEAN) SCH (08:04)
[2021-10-31] MEDS: INSULIN LISPRO (NovoLOG) PER UNIT SC SCH ×2 (08:05→13:00)
[2021-10-31] MEDS: OLANZapine 5 MG TAB PO SCH (08:05)
[2021-10-31] MEDS: VITAMIN D 1,000 INTERNATIONAL UNITS TABLET PO SCH (08:06)
[2021-10-31] MEDS: guaiFENesin ER 600 MG TAB PO SCH (08:06)
[2021-10-31] MEDS: FAMOTIDINE 20 MG TAB PO SCH (08:06)
[2021-10-31] MEDS ORDERED: MUCI600T31 PO (10:43)
[2021-10-31] MEDS ORDERED: DILT180C95 PO (10:43)
[2021-10-31] MEDS ORDERED: PRED10TA2 PO (10:43)
[2021-10-31] MEDS ORDERED: XARE20TA PO (10:43)
[2021-10-31] MEDS ORDERED: AMOX875T2 PO (10:43)
[2021-10-31] MEDS: COMBIVENT RESPIMAT 100-20MCG INHALER 4GM INH PRN (11:05)
[2021-11-01] MEDS ORDERED: GUAI1SOL2 PO (15:20)
[2021-11-01] MEDS ORDERED: LORA1TAB4 PO (15:22)
== END 2021-10-31 14:15 | disposition home health service (06) | DRG 309 ==
LOC: M ED 15:20 → M ED INP 22:46 → M PCU 10-29 01:23
PROVIDERS: ADMIT Family Medicine; ATTEND Family Medicine
PROC: B246ZZZ Ultrasonography of Right and Left Heart (ICD-10-PCS; principal; 2021-10-29)
DX: I48.91 Unspecified atrial fibrillation (principal); C34.90 Malignant neoplasm of unspecified part of unspecified bronchus or lung; J96.11 Chronic respiratory failure with hypoxia; J44.1 Chronic obstructive pulmonary disease with (acute) exacerbation; Z99.81 Dependence on supplemental oxygen; I10 Essential (primary) hypertension; E11.9 Type 2 diabetes mellitus without complications; M81.0 Age-related osteoporosis without current pathological fracture; K21.9 Gastro-esophageal reflux disease without esophagitis; E78.5 Hyperlipidemia, unspecified; E55.9 Vitamin D deficiency, unspecified; G47.33 Obstructive sleep apnea (adult) (pediatric); Z98.41 Cataract extraction status, right eye; Z98.42 Cataract extraction status, left eye; Z90.49 Acquired absence of other specified parts of digestive tract; Z90.79 Acquired absence of other genital organ(s); F17.210 Nicotine dependence, cigarettes, uncomplicated; Z92.3 Personal history of irradiation; Z92.21 Personal history of antineoplastic chemotherapy; Z20.822 Contact with and (suspected) exposure to COVID-19; Z79.899 Other long term (current) drug therapy; Z88.2 Allergy status to sulfonamides; F39 Unspecified mood [affective] disorder

== ENCOUNTER → 2021-11-21 | Outpatient (RCR) | payer MEDICARE ==
[~2021-11-21] MED LIST changes: +AMOX875T2 PO; +BUDE10.7 INH; +DILT180C95 PO; +FAMO20TA4 PO; +GUAI1SOL2 PO; +LORA1TAB4 PO; +MUCI600T31 PO; +OXYM15SP2; +PRED10TA2 PO; +XARE20TA PO
== END ==
LOC: M ONCR 10-23 14:33
PROVIDERS: ATTEND General Practice
DX: C34.11 Malignant neoplasm of upper lobe, right bronchus or lung (principal)

== ENCOUNTER 2021-11-26 12:50 | Outpatient (RCR) | payer MEDICARE ==
[~2021-11-26 12:50] MED LIST changes: +LEVO1TAB39 PO; -LEVO500T4 PO
[2021-12-03] MEDS ORDERED: OLAN1TAB16 PO (09:38)
[2021-12-03] MEDS ORDERED: LORA1TAB4 PO ×2 (09:38→10:01)
[2021-12-03] MEDS ORDERED: XARE20TA PO (09:38)
[2021-12-03] MEDS ORDERED: POTA-151 PO (09:38)
[2021-12-03] MEDS ORDERED: PROC10TA5 PO (09:38)
[2021-12-03] MEDS ORDERED: DILT180C95 PO (09:38)
[2021-12-03] MEDS ORDERED: FAMO20TA4 PO (09:41)
[2021-12-10] MEDS ORDERED: RISATAB3 PO (08:37)
[2021-12-10] MEDS ORDERED: MAGN400T2 PO (12:19)
[2021-12-12] MEDS ORDERED: MAGN200T10 PO (13:38)
[2021-12-12] MEDS ORDERED: RISATAB3 PO (13:39)
[2021-12-24] MEDS ORDERED: POTA-151 PO (10:33)
[2021-12-24] MEDS ORDERED: MEMA10TA19 PO (16:29)
[2021-12-24] MEDS ORDERED: MEMA1TAB3 PO (16:29)
== END 2021-12-22 ==
LOC: M ONCR 12:50
PROVIDERS: ATTEND General Practice
DX: Z51.0 Encounter for antineoplastic radiation therapy (principal); C34.11 Malignant neoplasm of upper lobe, right bronchus or lung

== ENCOUNTER 2021-12-07 20:18 | Inpatient (IN) | payer MEDICARE ==
[~2021-12-07] VITALS: Ht 165.1 cm; Wt 73.2 kg
[2021-12-07] MEDS: RIVAROXABAN 20MG TAB (XARELTO) PO SCH (18:00)
[~2021-12-07 20:18] MED LIST changes: -LEVO1TAB39 PO; +LEVO500T4 PO
[2021-12-07] MEDS: LORazepam 0.5 MG TAB PO SCH (21:00)
[2021-12-07 21:59] LABS: HEMATOCRIT 38.3 % (36.0-47.0); HEMOGLOBIN 12.6 g/dl (12.0-15.5); MEAN CORPUSCULAR HEMOGLOBIN 30.4 pg (27.0-33.0); MEAN CORPUSCULAR HGB CONC 32.9 g/dl (32.0-36.5); MEAN CORPUSCULAR VOLUME 92.3 fl (80.0-96.0); PLATELET COUNT, AUTOMATED 241 10^3/uL (150-450); RED BLOOD COUNT 4.15 10^6/uL (4.00-5.40)
[2021-12-07] MEDS ORDERED: PROMETHAZINE 25MG/ML 1ML VIAL IV ONE (22:00)
[2021-12-07 22:03] LABS: WHITE BLOOD COUNT 58.7 10^3/uL (4.0-10.0)
[2021-12-07 22:18] LABS: INR 1.06; PARTIAL THROMBOPLASTIN TIME 25.8 SECONDS (25.9-37.0); PROTHROMBIN TIME 14.2 SECONDS (12.7-14.5)
[2021-12-07 22:23] LABS: CK-MB VALUE MASS 1.6 NG/ML (<3.6); MB/CK RELATIVE INDEX 6.96 (< OR =4)
[2021-12-07 22:27] LABS: LYMPHOCYTES 4 % (16-44); METAMYELOCYTES 1 % (0-0); MONOCYTES 2 % (0-5); NEUTROPHILS 73 % (28-66)
[2021-12-07 22:28] LABS: ALBUMIN 3.4 GM/DL (3.2-5.2); ALT/SGPT 19 U/L (12-78); ANISOCYTOSIS 2+; BILIRUBIN,DIRECT 0.1 MG/DL (0.0-0.2); BILIRUBIN,TOTAL 0.3 MG/DL (0.2-1.0); BLOOD UREA NITROGEN 19 MG/DL (7-18); CALCIUM LEVEL 10.4 MG/DL (8.8-10.2); CARBON DIOXIDE LEVEL 37 MEQ/L (21-32); CHLORIDE LEVEL 95 MEQ/L (98-107); CREATININE FOR GFR 0.74 MG/DL (0.55-1.30); FREE T4 1.12 NG/DL (0.76-1.46); GLOMERULAR FILTRATION RATE > 60.0 (>39); GLUCOSE, FASTING 151 MG/DL (70-100); LIPASE 106 U/L (73-393); NT-PRO BNP 718 PG/ML (<125); PLATELET ESTIMATE NORMAL (NORMAL); SODIUM LEVEL 140 MEQ/L (136-145); TOTAL PROTEIN 6.4 GM/DL (6.4-8.2)
[2021-12-07] MEDS ORDERED: ACETAMINOPHEN TAB 650MG DOSE (2X325MG) PO PRN (23:00)
[2021-12-07] MEDS ORDERED: POTASSIUM CHLORIDE 10MEQ SR TABLET PO ONE (23:00)
[2021-12-07] MEDS ORDERED: NS 1,000 ML IV SCH (23:00)
[2021-12-07] MEDS ORDERED: PIPERACILLIN/TAZOBACTAM SOD 4.5 GM in D5W MINI-BAG PLUS 50 ML IV ONE (23:05)
[2021-12-07] MEDS ORDERED: VANCOMYCIN HCL 1,000 MG, VIAL MATE ADAPTER 1 EACH in NS 250 ML IV ONE (23:05)
[2021-12-07] MEDS ORDERED: GLUCAGON INJ 1MG VIAL SC PRN (23:15)
[2021-12-07] MEDS ORDERED: DEXTROSE 50% 50 ML SYRINGE IV PRN (23:15)
[2021-12-07] MEDS ORDERED: GLUCOSE 4GM CHEW TABLET PO PRN (23:15)
[2021-12-07] MEDS ORDERED: HOME MED LIST COMPLETE! XX SCH (23:25)
[2021-12-07 23:44] LABS: MAGNESIUM LEVEL 1.9 MG/DL (1.8-2.4)
[2021-12-08] VITALS (8 sets, daily range): BP systolic 113–156; BP diastolic 58–85
[2021-12-08 00:24] LABS: RSV AMPLIFICATION NEGATIVE (NEGATIVE)
[2021-12-08] MEDS ORDERED: PIPERACILLIN/TAZOBACTAM SOD 4.5 GM in D5W MINI-BAG PLUS 50 ML IV SCH (00:40)
[2021-12-08] MEDS ORDERED: IPRATROPIUM 0.5MG/ALBUTEROL 2.5MG INH SOL UD 3ML (DUONEB) INH PRN (00:50)
[2021-12-08] MEDS ORDERED: MAGIC MOUTHWASH SUSPENSION BTL SSP PRN (00:50)
[2021-12-08] MEDS ORDERED: PROCHLORPERAZINE 10MG 2ML VIAL IV PRN (00:50)
[2021-12-08] MEDS ORDERED: VANCOMYCIN HCL 500 MG in D5W MINI-BAG PLUS 100 ML IV ONE (02:00)
[2021-12-08] MEDS: RIVAROXABAN 20MG TAB (XARELTO) PO SCH ×2 (02:29→17:30)
[2021-12-08] MEDS: PIPERACILLIN/TAZOBACTAM SOD 4.5 GM in D5W MINI-BAG PLUS 50 ML IV SCH ×3 (06:04→17:31)
[2021-12-08 06:32] LABS: HEMATOCRIT 34.2 % (36.0-47.0); MEAN CORPUSCULAR HEMOGLOBIN 29.6 pg (27.0-33.0); MEAN CORPUSCULAR HGB CONC 32.2 g/dl (32.0-36.5); MEAN CORPUSCULAR VOLUME 92.2 fl (80.0-96.0); PLATELET COUNT, AUTOMATED 183 10^3/uL (150-450); RED BLOOD COUNT 3.71 10^6/uL (4.00-5.40)
[2021-12-08 06:49] LABS: HEMOGLOBIN A1c 6.5 %
[2021-12-08 06:57] LABS: ALBUMIN 2.7 GM/DL (3.2-5.2); ALT/SGPT 15 U/L (12-78); BILIRUBIN,TOTAL 0.6 MG/DL (0.2-1.0); BLOOD UREA NITROGEN 14 MG/DL (7-18); CALCIUM LEVEL 9.6 MG/DL (8.8-10.2); CARBON DIOXIDE LEVEL 38 MEQ/L (21-32); CHLORIDE LEVEL 99 MEQ/L (98-107); CREATININE FOR GFR 0.58 MG/DL (0.55-1.30); GLOMERULAR FILTRATION RATE > 60.0 (>39); GLUCOSE, FASTING 115 MG/DL (70-100); MAGNESIUM LEVEL 1.7 MG/DL (1.8-2.4); SODIUM LEVEL 142 MEQ/L (136-145); TOTAL PROTEIN 5.5 GM/DL (6.4-8.2)
[2021-12-08] MEDS ORDERED: MAG SULF 1GM/100ML (MAG RUN) 1 GM in IV 1 EA IV ONE (08:00)
[2021-12-08] MEDS: diltiaZEM **CD** 180 MG CAP PO SCH (08:37)
[2021-12-08] MEDS: POTASSIUM CHLORIDE 10MEQ SR TABLET PO ONE ×2 (08:37→09:10)
[2021-12-08] MEDS: LACTOBACILLUS ACIDOPHILUS CAP (BACID) PO SCH (08:37)
[2021-12-08] MEDS: FAMOTIDINE 20 MG TAB PO SCH ×2 (08:37→20:26)
[2021-12-08] MEDS: VITAMIN D 1,000 INTERNATIONAL UNITS TABLET PO SCH (08:37)
[2021-12-08] MEDS: LORazepam 0.5 MG TAB PO SCH ×2 (08:37→20:26)
[2021-12-08] MEDS: INSULIN LISPRO (NovoLOG) PER UNIT SC SCH ×4 (08:38→20:12)
[2021-12-08] MEDS ORDERED: POTASSIUM CHL PWD 20 MEQ PACKET PO ONE ×2 (09:00→11:00)
[2021-12-08] MEDS ORDERED: NS 500 ML IV ONE (09:35)
[2021-12-08] MEDS ORDERED: POTASSIUM CHLORIDE 10MEQ SR TABLET PO ONE (11:00)
[2021-12-08] MEDS: VANCOMYCIN HCL 1,000 MG, VIAL MATE ADAPTER 1 EACH in D5W 250 ML IV SCH ×2 (12:53→23:21)
[2021-12-08 15:49] LABS: BLOOD UREA NITROGEN 13 MG/DL (7-18); CALCIUM LEVEL 9.3 MG/DL (8.8-10.2); CARBON DIOXIDE LEVEL 38 MEQ/L (21-32); CHLORIDE LEVEL 98 MEQ/L (98-107); CREATININE FOR GFR 0.58 MG/DL (0.55-1.30); GLOMERULAR FILTRATION RATE > 60.0 (>39); GLUCOSE, FASTING 152 MG/DL (70-100); POTASSIUM SERUM 3.9 MEQ/L (3.5-5.1); SODIUM LEVEL 138 MEQ/L (136-145)
[2021-12-08] MEDS ORDERED: IPRATROPIUM 0.5MG/ALBUTEROL 2.5MG INH SOL UD 3ML (DUONEB) NEB PRN (17:15)
[2021-12-08] MEDS ORDERED: COMBIVENT RESPIMAT 100-20MCG INHALER 4GM INH PRN (17:20)
[2021-12-08] MEDS: IPRATROPIUM 0.5MG/ALBUTEROL 2.5MG INH SOL UD 3ML (DUONEB) INH SCH (19:16)
[2021-12-08] MEDS: SIMVASTATIN 10 MG TAB PO SCH (20:26)
[2021-12-09] VITALS: BP 106/55
[2021-12-09] MEDS: PIPERACILLIN/TAZOBACTAM SOD 4.5 GM in D5W MINI-BAG PLUS 50 ML IV SCH ×2 (01:15→05:28)
[2021-12-09] MEDS: IPRATROPIUM 0.5MG/ALBUTEROL 2.5MG INH SOL UD 3ML (DUONEB) INH SCH ×4 (02:05→20:07)
[2021-12-09 03:43] VITALS: BP 126/71
[2021-12-09 05:55] LABS: HEMATOCRIT 30.8 % (36.0-47.0); HEMOGLOBIN 9.7 g/dl (12.0-15.5); MEAN CORPUSCULAR HEMOGLOBIN 29.8 pg (27.0-33.0); MEAN CORPUSCULAR HGB CONC 31.5 g/dl (32.0-36.5); MEAN CORPUSCULAR VOLUME 94.5 fl (80.0-96.0); PLATELET COUNT, AUTOMATED 135 10^3/uL (150-450); RED BLOOD COUNT 3.26 10^6/uL (4.00-5.40)
[2021-12-09 06:19] LABS: ALBUMIN 2.6 GM/DL (3.2-5.2); ALT/SGPT 12 U/L (12-78); BILIRUBIN,TOTAL 0.6 MG/DL (0.2-1.0); BLOOD UREA NITROGEN 9 MG/DL (7-18); CALCIUM LEVEL 9.2 MG/DL (8.8-10.2); CARBON DIOXIDE LEVEL 36 MEQ/L (21-32); CHLORIDE LEVEL 102 MEQ/L (98-107); CREATININE FOR GFR 0.52 MG/DL (0.55-1.30); GLOMERULAR FILTRATION RATE > 60.0 (>39); GLUCOSE, FASTING 91 MG/DL (70-100); MAGNESIUM LEVEL 1.3 MG/DL (1.8-2.4); POTASSIUM SERUM 3.4 MEQ/L (3.5-5.1); SODIUM LEVEL 142 MEQ/L (136-145); TOTAL PROTEIN 5.3 GM/DL (6.4-8.2)
[2021-12-09 06:46] LABS: LYMPHOCYTES 2 % (16-44); NEUTROPHILS 95 % (28-66); PLATELET ESTIMATE NORMAL (NORMAL)
[2021-12-09 06:47] LABS: ANISOCYTOSIS 2+
[2021-12-09 06:49] LABS: TOXIC GRANULATION 1+
[2021-12-09] MEDS: INSULIN LISPRO (NovoLOG) PER UNIT SC SCH ×4 (07:30→20:47)
[2021-12-09] MEDS: METOPROLOL 5 MG/5 ML VIAL IV SCH ×3 (07:47→08:55)
[2021-12-09 07:58] VITALS: BP 130/82
[2021-12-09] MEDS ORDERED: POTASSIUM CHLORIDE 10MEQ SR TABLET PO ONE (08:00)
[2021-12-09] MEDS: FAMOTIDINE 20 MG TAB PO SCH ×2 (08:42→20:46)
[2021-12-09] MEDS: LACTOBACILLUS ACIDOPHILUS CAP (BACID) PO SCH (08:42)
[2021-12-09] MEDS: VITAMIN D 1,000 INTERNATIONAL UNITS TABLET PO SCH (08:43)
[2021-12-09] MEDS: diltiaZEM **CD** 180 MG CAP PO SCH (08:43)
[2021-12-09] MEDS: LORazepam 0.5 MG TAB PO SCH ×2 (08:43→20:46)
[2021-12-09] MEDS: MAG SULF 1GM/100ML (MAG RUN) 1 GM in IV 1 EA IV SCH ×3 (08:44→11:35)
[2021-12-09 12:00] VITALS: BP 112/61
[2021-12-09 16:55] VITALS: BP 130/63
[2021-12-09] MEDS: RIVAROXABAN 20MG TAB (XARELTO) PO SCH (18:12)
[2021-12-09 20:19] VITALS: BP 113/65
[2021-12-09] MEDS: SIMVASTATIN 10 MG TAB PO SCH (20:46)
[2021-12-10] MEDS: IPRATROPIUM 0.5MG/ALBUTEROL 2.5MG INH SOL UD 3ML (DUONEB) INH SCH ×2 (02:00→08:05)
[2021-12-10 04:03] VITALS: BP 113/66
[2021-12-10 05:58] LABS: HEMATOCRIT 31.4 % (36.0-47.0); MEAN CORPUSCULAR HEMOGLOBIN 30.1 pg (27.0-33.0); MEAN CORPUSCULAR HGB CONC 31.8 g/dl (32.0-36.5); MEAN CORPUSCULAR VOLUME 94.6 fl (80.0-96.0); PLATELET COUNT, AUTOMATED 109 10^3/uL (150-450); RED BLOOD COUNT 3.32 10^6/uL (4.00-5.40); WHITE BLOOD COUNT 16.2 10^3/uL (4.0-10.0)
[2021-12-10 06:22] LABS: ALBUMIN 2.7 GM/DL (3.2-5.2); ALT/SGPT 16 U/L (12-78); BILIRUBIN,TOTAL 0.4 MG/DL (0.2-1.0); BLOOD UREA NITROGEN 8 MG/DL (7-18); CALCIUM LEVEL 9.4 MG/DL (8.8-10.2); CARBON DIOXIDE LEVEL 33 MEQ/L (21-32); CHLORIDE LEVEL 104 MEQ/L (98-107); GLOMERULAR FILTRATION RATE > 60.0 (>39); GLUCOSE, FASTING 100 MG/DL (70-100); MAGNESIUM LEVEL 1.5 MG/DL (1.8-2.4); POTASSIUM SERUM 3.5 MEQ/L (3.5-5.1); SODIUM LEVEL 143 MEQ/L (136-145)
[2021-12-10 07:50] LABS: ANISOCYTOSIS 4+; LYMPHOCYTES 3 % (16-44); MONOCYTES 2 % (0-5); NEUTROPHILS 94 % (28-66); PLATELET ESTIMATE DECREASED (NORMAL)
[2021-12-10 07:51] LABS: TOXIC GRANULATION 1+
[2021-12-10] MEDS: LACTOBACILLUS ACIDOPHILUS CAP (BACID) PO SCH (08:27)
[2021-12-10] MEDS: LORazepam 0.5 MG TAB PO SCH (08:27)
[2021-12-10] MEDS: INSULIN LISPRO (NovoLOG) PER UNIT SC SCH ×2 (08:27→12:56)
[2021-12-10] MEDS: MAG SULF 1GM/100ML (MAG RUN) 1 GM in IV 1 EA IV SCH ×3 (08:27→09:56)
[2021-12-10 08:28] VITALS: BP 113/66
[2021-12-10] MEDS: FAMOTIDINE 20 MG TAB PO SCH (08:28)
[2021-12-10] MEDS: diltiaZEM **CD** 180 MG CAP PO SCH (08:28)
[2021-12-10] MEDS: VITAMIN D 1,000 INTERNATIONAL UNITS TABLET PO SCH (08:28)
[2021-12-10] MEDS ORDERED: RISATAB3 PO (08:37)
[2021-12-10 11:52] VITALS: BP 103/68
[2021-12-10] MEDS ORDERED: MAGN400T2 PO (12:19)
== END 2021-12-10 14:14 | disposition home or self-care (01) | DRG 394 ==
LOC: M ED 20:18 → M ED INP 20:19 → ENRESERV 12-08 00:32 → M PCU 12-08 04:56 → OBSVTOIN 12-08 07:23 → ENRESERV 12-09 16:06 → M 4MAIN 12-09 16:51
PROVIDERS: ADMIT Internal Medicine; ATTEND Internal Medicine
DX: K52.1 Toxic gastroenteritis and colitis (principal); J96.11 Chronic respiratory failure with hypoxia; C34.90 Malignant neoplasm of unspecified part of unspecified bronchus or lung; I48.91 Unspecified atrial fibrillation; J44.9 Chronic obstructive pulmonary disease, unspecified; Z99.81 Dependence on supplemental oxygen; I10 Essential (primary) hypertension; E11.9 Type 2 diabetes mellitus without complications; F32.A Depression, unspecified; D72.829 Elevated white blood cell count, unspecified; G47.33 Obstructive sleep apnea (adult) (pediatric); E78.5 Hyperlipidemia, unspecified; F17.210 Nicotine dependence, cigarettes, uncomplicated; Z98.41 Cataract extraction status, right eye; Z98.42 Cataract extraction status, left eye; Z90.79 Acquired absence of other genital organ(s); M54.50 Low back pain, unspecified; G89.29 Other chronic pain; Z88.2 Allergy status to sulfonamides; Z79.899 Other long term (current) drug therapy; Z20.822 Contact with and (suspected) exposure to COVID-19; E87.6 Hypokalemia; K21.9 Gastro-esophageal reflux disease without esophagitis; T45.8X5A Adverse effect of other primarily systemic and hematological agents, initial encounter; Z79.01 Long term (current) use of anticoagulants; E83.42 Hypomagnesemia; T45.1X5A Adverse effect of antineoplastic and immunosuppressive drugs, initial encounter

== ENCOUNTER → 2021-12-19 | Outpatient (CLI) | payer MEDICARE ==
[~2021-12-19] MED LIST changes: +CEFD300CAP PO; +ISOVUE-370 76% 25ML SYRINGE As Ordered ONE; +LEVO1TAB39 PO; -LEVO500T4 PO; +MAGN200T10 PO; +MAGN400T2 PO; +MEMA10TA19 PO; +MEMA1TAB3 PO; +RISATAB3 PO
== END ==
LOC: M RAD 08:53
PROVIDERS: ATTEND General Practice
DX: C34.11 Malignant neoplasm of upper lobe, right bronchus or lung (principal)

== ENCOUNTER → 2021-12-24 | Outpatient (CLI) | payer MEDICARE ==
[~2021-12-24] MED LIST changes: +AMOX875T2; +IRON325T2 PO; -ISOVUE-370 76% 25ML SYRINGE As Ordered ONE; +LEVO1TAB40; +WARF4TAB51 PO; +WARF4TAB52
== END ==
LOC: M ONCR 15:45
PROVIDERS: ATTEND General Practice
DX: C34.11 Malignant neoplasm of upper lobe, right bronchus or lung (principal); C38.3 Malignant neoplasm of mediastinum, part unspecified; F17.210 Nicotine dependence, cigarettes, uncomplicated; Z88.1 Allergy status to other antibiotic agents; Z88.2 Allergy status to sulfonamides; Z79.01 Long term (current) use of anticoagulants; Z79.51 Long term (current) use of inhaled steroids; Z79.84 Long term (current) use of oral hypoglycemic drugs; Z79.891 Long term (current) use of opiate analgesic; Z79.899 Other long term (current) drug therapy; Z92.21 Personal history of antineoplastic chemotherapy; Z92.3 Personal history of irradiation

== ENCOUNTER 2021-12-30 14:45 | Inpatient (IN) | payer MEDICARE ==
[~2021-12-30] VITALS: Ht 165.1 cm; Wt 71.5 kg
[2021-12-30] MEDS: INSULIN LISPRO (NovoLOG) PER UNIT SC SCH (00:10)
[~2021-12-30 14:45] MED LIST changes: -AMOX875T2; -CEFD300CAP PO; -IRON325T2 PO; -LEVO1TAB40; -WARF4TAB51 PO; -WARF4TAB52
[2021-12-30] MEDS ORDERED: NS 500 ML IV ONE ×2 (15:40→17:30)
[2021-12-30 15:51] LABS: HEMATOCRIT 31.3 % (36.0-47.0); HEMOGLOBIN 10.2 g/dl (12.0-15.5); MEAN CORPUSCULAR HEMOGLOBIN 31.9 pg (27.0-33.0); MEAN CORPUSCULAR HGB CONC 32.6 g/dl (32.0-36.5); MEAN CORPUSCULAR VOLUME 97.8 fl (80.0-96.0); PLATELET COUNT, AUTOMATED 167 10^3/uL (150-450)
[2021-12-30 15:56] LABS: WHITE BLOOD COUNT 63.2 10^3/uL (4.0-10.0)
[2021-12-30 16:21] LABS: INR 1.09; PROTHROMBIN TIME 14.6 SECONDS (12.7-14.5)
[2021-12-30 16:22] LABS: PARTIAL THROMBOPLASTIN TIME 30.5 SECONDS (25.9-37.0)
[2021-12-30 16:32] LABS: ANISOCYTOSIS 4+; BASOPHILS 1 % (0-1); NEUTROPHILS 96 % (28-66)
[2021-12-30 16:33] LABS: OVALOCYTES 1+; PLATELET ESTIMATE NORMAL (NORMAL); POIKILOCYTOSIS 1+
[2021-12-30 16:34] LABS: ALBUMIN 3.1 GM/DL (3.2-5.2); ALT/SGPT 18 U/L (12-78); BILIRUBIN,DIRECT < 0.1 MG/DL (0.0-0.2); BILIRUBIN,TOTAL 0.3 MG/DL (0.2-1.0); LIPASE 58 U/L (73-393); TOTAL PROTEIN 5.7 GM/DL (6.4-8.2)
[2021-12-30 17:20] LABS: BLOOD UREA NITROGEN 14 MG/DL (7-18); CALCIUM LEVEL 9.4 MG/DL (8.8-10.2); CARBON DIOXIDE LEVEL 35 MEQ/L (21-32); CHLORIDE LEVEL 98 MEQ/L (98-107); GLOMERULAR FILTRATION RATE > 60.0 (>39); GLUCOSE, FASTING 123 MG/DL (70-100); SODIUM LEVEL 140 MEQ/L (136-145)
[2021-12-30] MEDS ORDERED: ONDANSETRON 4MG 2ML VIAL IV ONE (17:30)
[2021-12-30] MEDS ORDERED: POTASSIUM CHLORIDE 10MEQ SR TABLET PO ONE (17:30)
[2021-12-30 17:49] LABS: MAGNESIUM LEVEL 1.5 MG/DL (1.8-2.4)
[2021-12-30] MEDS ORDERED: MAG SULF 1GM/100ML (MAG RUN) 1 GM in IV 1 EA IV ONE (18:25)
[2021-12-30] MEDS ORDERED: PANT40TA29 PO (18:55)
[2021-12-30] MEDS ORDERED: HOME MED LIST COMPLETE! XX SCH (19:00)
[2021-12-30 19:27] LABS: RSV AMPLIFICATION NEGATIVE (NEGATIVE)
[2021-12-30] MEDS ORDERED: ALBUTEROL SULFATE 2.5 MG/0.5 ML INH NEB SOLN NEB PRN (22:20)
[2021-12-30] MEDS ORDERED: GLUCAGON INJ 1MG VIAL SC PRN (22:20)
[2021-12-30] MEDS ORDERED: DEXTROSE 50% 50 ML SYRINGE IV PRN (22:20)
[2021-12-30] MEDS ORDERED: GLUCOSE 4GM CHEW TABLET PO PRN (22:20)
[2021-12-30] MEDS: DOXYCYCLINE HYCLATE 100MG TABLET PO SCH (23:55)
[2021-12-31 00:30] LABS: HEMATOCRIT 30.8 % (36.0-47.0); HEMOGLOBIN 9.9 g/dl (12.0-15.5)
[2021-12-31] MEDS: dexameTHASONE 4 MG/ML 1ML VIAL (J1100 PER 1MG) IV SCH ×2 (00:41→23:22)
[2021-12-31] MEDS: NS 1,000 ML IV SCH ×2 (00:42→12:51)
[2021-12-31] MEDS: IPRATROPIUM 0.5MG/ALBUTEROL 2.5MG INH SOL UD 3ML (DUONEB) NEB SCH ×4 (02:00→20:03)
[2021-12-31 04:05] LABS: HEMATOCRIT 31.5 % (36.0-47.0); HEMOGLOBIN 9.9 g/dl (12.0-15.5)
[2021-12-31 08:09] LABS: HEMOGLOBIN 10.3 g/dl (12.0-15.5); MEAN CORPUSCULAR HEMOGLOBIN 31.9 pg (27.0-33.0); MEAN CORPUSCULAR HGB CONC 32.2 g/dl (32.0-36.5); MEAN CORPUSCULAR VOLUME 99.1 fl (80.0-96.0); PLATELET COUNT, AUTOMATED 128 10^3/uL (150-450); RED BLOOD COUNT 3.23 10^6/uL (4.00-5.40)
[2021-12-31 08:16] LABS: WHITE BLOOD COUNT 42.1 10^3/uL (4.0-10.0)
[2021-12-31] MEDS: INSULIN LISPRO (NovoLOG) PER UNIT SC SCH ×4 (08:30→20:42)
[2021-12-31 08:40] LABS: LYMPHOCYTES 1 % (16-44); NEUTROPHILS 95 % (28-66); PLATELET ESTIMATE NORMAL (NORMAL)
[2021-12-31 09:02] LABS: ALT/SGPT 14 U/L (12-78); BILIRUBIN,TOTAL 0.6 MG/DL (0.2-1.0); BLOOD UREA NITROGEN 12 MG/DL (7-18); CALCIUM LEVEL 9.5 MG/DL (8.8-10.2); CARBON DIOXIDE LEVEL 32 MEQ/L (21-32); CHLORIDE LEVEL 103 MEQ/L (98-107); CREATININE FOR GFR 0.43 MG/DL (0.55-1.30); GLOMERULAR FILTRATION RATE > 60.0 (>39); GLUCOSE, FASTING 143 MG/DL (70-100); MAGNESIUM LEVEL 1.3 MG/DL (1.8-2.4); SODIUM LEVEL 141 MEQ/L (136-145); TOTAL PROTEIN 5.9 GM/DL (6.4-8.2)
[2021-12-31] MEDS: DOXYCYCLINE HYCLATE 100MG TABLET PO SCH ×2 (09:15→20:44)
[2021-12-31] MEDS ORDERED: SODIUM CHLORIDE 0.9% INJ 10 ML SYR IV SCH (11:20)
[2021-12-31 11:30] VITALS: BP 150/74
[2021-12-31 11:46] LABS: HEMATOCRIT 31.5 % (36.0-47.0); HEMOGLOBIN 10.1 g/dl (12.0-15.5)
[2021-12-31 12:00] VITALS: BP 145/80
[2021-12-31] MEDS: MAG SULF 1GM/100ML (MAG RUN) 1 GM in IV 1 EA IV SCH ×5 (12:47→20:23)
[2021-12-31] MEDS: BARICITINIB 2MG TABLET (OLUMIANT) FOR EUA PO SCH (12:48)
[2021-12-31] MEDS ORDERED: REMDESIVIR 200 MG in NS 250 ML IV ONE (14:00)
[2021-12-31] MEDS: SODIUM CHLORIDE 0.9% INJ 10 ML SYR IV SCH (15:10)
[2021-12-31 18:04] LABS: HEMATOCRIT 29.4 % (36.0-47.0); HEMOGLOBIN 9.3 g/dl (12.0-15.5)
[2021-12-31 20:00] VITALS: O2SAT 96
[2021-12-31 20:08] VITALS: BP 135/74
[2022-01-01] VITALS (8 sets, daily range): BP systolic 120–140; BP diastolic 63–90; O2SAT 91–98
[2022-01-01] MEDS: IPRATROPIUM 0.5MG/ALBUTEROL 2.5MG INH SOL UD 3ML (DUONEB) NEB SCH ×4 (02:10→19:20)
[2022-01-01] MEDS: NS 1,000 ML IV SCH (03:15)
[2022-01-01] MEDS: SIMVASTATIN 10 MG TAB PO SCH ×2 (04:18→20:04)
[2022-01-01 07:04] LABS: HEMATOCRIT 27.6 % (36.0-47.0); HEMOGLOBIN 8.9 g/dl (12.0-15.5); MEAN CORPUSCULAR HEMOGLOBIN 31.2 pg (27.0-33.0); MEAN CORPUSCULAR HGB CONC 32.2 g/dl (32.0-36.5); MEAN CORPUSCULAR VOLUME 96.8 fl (80.0-96.0); PLATELET COUNT, AUTOMATED 110 10^3/uL (150-450); RED BLOOD COUNT 2.85 10^6/uL (4.00-5.40); WHITE BLOOD COUNT 28.1 10^3/uL (4.0-10.0)
[2022-01-01 07:30] LABS: ANISOCYTOSIS 4+; LYMPHOCYTES 1 % (16-44); MICROCYTOSIS 1+; MONOCYTES 2 % (0-5); NEUTROPHILS 94 % (28-66); PLATELET ESTIMATE DECREASED (NORMAL)
[2022-01-01 07:31] LABS: OVALOCYTES 1+
[2022-01-01 07:42] LABS: ALBUMIN 2.6 GM/DL (3.2-5.2); ALT/SGPT 16 U/L (12-78); BILIRUBIN,TOTAL 0.4 MG/DL (0.2-1.0); BLOOD UREA NITROGEN 13 MG/DL (7-18); CALCIUM LEVEL 9.1 MG/DL (8.8-10.2); CARBON DIOXIDE LEVEL 31 MEQ/L (21-32); CHLORIDE LEVEL 102 MEQ/L (98-107); CREATININE FOR GFR 0.42 MG/DL (0.55-1.30); GLOMERULAR FILTRATION RATE > 60.0 (>39); GLUCOSE, FASTING 136 MG/DL (70-100); MAGNESIUM LEVEL 1.6 MG/DL (1.8-2.4); POTASSIUM SERUM 3.2 MEQ/L (3.5-5.1); SODIUM LEVEL 140 MEQ/L (136-145); TOTAL PROTEIN 5.5 GM/DL (6.4-8.2)
[2022-01-01] MEDS ORDERED: POTASSIUM CHLORIDE 10MEQ SR TABLET PO ONE (08:30)
[2022-01-01] MEDS: CEFDINIR 300 MG CAP (OMNICEF) PO SCH ×2 (09:20→20:04)
[2022-01-01] MEDS: DOXYCYCLINE HYCLATE 100MG TABLET PO SCH ×2 (09:20→20:04)
[2022-01-01] MEDS: BARICITINIB 2MG TABLET (OLUMIANT) FOR EUA PO SCH (09:21)
[2022-01-01] MEDS: MAG SULF 1GM/100ML (MAG RUN) 1 GM in IV 1 EA IV SCH ×2 (09:22→10:36)
[2022-01-01] MEDS: INSULIN LISPRO (NovoLOG) PER UNIT SC SCH ×4 (09:22→19:55)
[2022-01-01] MEDS: LACTOBACILLUS ACIDOPHILUS CAP (BACID) PO SCH ×2 (09:25→18:29)
[2022-01-01] MEDS: SODIUM CHLORIDE 0.9% INJ 10 ML SYR IV SCH (13:28)
[2022-01-01] MEDS ORDERED: REMDESIVIR 100 MG in NS 250 ML IV SCH (14:00)
[2022-01-01 15:13] LABS: HEMATOCRIT 29.9 % (36.0-47.0); HEMOGLOBIN 9.5 g/dl (12.0-15.5)
[2022-01-01] MEDS ORDERED: RIVAROXABAN 20MG TAB (XARELTO) PO SCH (18:00)
[2022-01-01] MEDS: dexameTHASONE 4 MG/ML 1ML VIAL (J1100 PER 1MG) IV SCH (22:54)
[2022-01-02] VITALS (10 sets, daily range): BP systolic 119–144; BP diastolic 63–65; O2SAT 94–98
[2022-01-02] MEDS: IPRATROPIUM 0.5MG/ALBUTEROL 2.5MG INH SOL UD 3ML (DUONEB) NEB SCH ×2 (01:40→08:15)
[2022-01-02 03:31] LABS: HEMOGLOBIN 8.6 g/dl (12.0-15.5); LYMPH # 0.1 10^3/uL (1.5-5.0); LYMPH % 0.5 % (24.0-44.0); MEAN CORPUSCULAR HEMOGLOBIN 31.3 pg (27.0-33.0); MEAN CORPUSCULAR HGB CONC 31.9 g/dl (32.0-36.5); MEAN CORPUSCULAR VOLUME 98.2 fl (80.0-96.0); MONO # 0.8 10^3/uL (0.0-0.8); MONO % 3.8 % (2.0-8.0); NEUTROPHILS # 19.5 10^3/uL (1.5-8.5); NEUTROPHILS % 93.8 % (36.0-66.0); RED BLOOD COUNT 2.75 10^6/uL (4.00-5.40); WHITE BLOOD COUNT 20.8 10^3/uL (4.0-10.0)
[2022-01-02 03:35] LABS: PLATELET COUNT, AUTOMATED 93 10^3/uL (150-450)
[2022-01-02 04:15] LABS: ALBUMIN 2.8 GM/DL (3.2-5.2); ALT/SGPT 15 U/L (12-78); BILIRUBIN,TOTAL 0.3 MG/DL (0.2-1.0); BLOOD UREA NITROGEN 15 MG/DL (7-18); CALCIUM LEVEL 8.8 MG/DL (8.8-10.2); CARBON DIOXIDE LEVEL 32 MEQ/L (21-32); CHLORIDE LEVEL 103 MEQ/L (98-107); CREATININE FOR GFR 0.49 MG/DL (0.55-1.30); GLOMERULAR FILTRATION RATE > 60.0 (>39); GLUCOSE, FASTING 166 MG/DL (70-100); MAGNESIUM LEVEL 1.4 MG/DL (1.8-2.4); POTASSIUM SERUM 3.6 MEQ/L (3.5-5.1); SODIUM LEVEL 138 MEQ/L (136-145); TOTAL PROTEIN 5.2 GM/DL (6.4-8.2)
[2022-01-02] MEDS ORDERED: ALBUTEROL 90 MCG/ACT 8GM HFA INHALER INH PRN (07:00)
[2022-01-02] MEDS ORDERED: EPINEPHrine INJ 1 MG/ML 1ML AMP IM PRN (07:01)
[2022-01-02] MEDS ORDERED: ALBUTEROL SULFATE 2.5 MG/0.5 ML INH NEB SOLN INH PRN (07:01)
[2022-01-02] MEDS ORDERED: methylPREDNISolone 125MG 2ML VIAL IV PRN (07:01)
[2022-01-02] MEDS ORDERED: diphenhydrAMINE 50MG/ML VIAL (J1200) IV PRN (07:01)
[2022-01-02] MEDS ORDERED: MAGNESIUM OXIDE 400MG TAB (MAG-OX) PO SCH (09:00)
[2022-01-02] MEDS: CEFDINIR 300 MG CAP (OMNICEF) PO SCH (09:11)
[2022-01-02] MEDS: LACTOBACILLUS ACIDOPHILUS CAP (BACID) PO SCH (09:12)
[2022-01-02] MEDS: INSULIN LISPRO (NovoLOG) PER UNIT SC SCH ×2 (09:13→12:03)
[2022-01-02] MEDS: DOXYCYCLINE HYCLATE 100MG TABLET PO SCH (09:13)
[2022-01-02] MEDS: BARICITINIB 2MG TABLET (OLUMIANT) FOR EUA PO SCH (09:14)
[2022-01-02 11:21] LABS: HEMATOCRIT 29.3 % (36.0-47.0); HEMOGLOBIN 9.2 g/dl (12.0-15.5); MEAN CORPUSCULAR HEMOGLOBIN 30.6 pg (27.0-33.0); MEAN CORPUSCULAR HGB CONC 31.4 g/dl (32.0-36.5); MEAN CORPUSCULAR VOLUME 97.3 fl (80.0-96.0); RED BLOOD COUNT 3.01 10^6/uL (4.00-5.40); WHITE BLOOD COUNT 24.7 10^3/uL (4.0-10.0)
[2022-01-02 11:22] LABS: PLATELET COUNT, AUTOMATED 99 10^3/uL (150-450)
[2022-01-02 11:40] LABS: ANISOCYTOSIS 4+; LYMPHOCYTES 1 % (16-44); METAMYELOCYTES 2 % (0-0); MONOCYTES 4 % (0-5); NEUTROPHILS 75 % (28-66); POIKILOCYTOSIS 1+
[2022-01-02 11:41] LABS: OVALOCYTES 2+; PLATELET ESTIMATE DECREASED (NORMAL)
[2022-01-02] MEDS ORDERED: CEFD300CAP PO (11:57)
[2022-01-02] MEDS ORDERED: BEBTELOVIMAB 175MG 2ML VIAL (EUA) IV ONE (12:00)
[2022-01-02] MEDS ORDERED: NS 1,000 ML IV SCH (12:00)
== END 2022-01-02 15:10 | disposition home or self-care (01) | DRG 391 ==
LOC: M ED 14:45 → M ED INP 19:46 → CANRESERV 21:55 → ENRESERV 21:55 → M 4MAIN 12-31 10:45
PROVIDERS: ADMIT Internal Medicine; ATTEND Internal Medicine
DX: R11.2 Nausea with vomiting, unspecified (principal); U07.1 COVID-19; J15.9 Unspecified bacterial pneumonia; J44.1 Chronic obstructive pulmonary disease with (acute) exacerbation; C34.90 Malignant neoplasm of unspecified part of unspecified bronchus or lung; K62.5 Hemorrhage of anus and rectum; N39.0 Urinary tract infection, site not specified; E11.9 Type 2 diabetes mellitus without complications; J44.9 Chronic obstructive pulmonary disease, unspecified; I48.0 Paroxysmal atrial fibrillation; T45.1X5A Adverse effect of antineoplastic and immunosuppressive drugs, initial encounter; R19.7 Diarrhea, unspecified; E87.6 Hypokalemia; E83.42 Hypomagnesemia; Z92.21 Personal history of antineoplastic chemotherapy; Z92.3 Personal history of irradiation; Z79.899 Other long term (current) drug therapy; Z88.2 Allergy status to sulfonamides; Z87.891 Personal history of nicotine dependence

== ENCOUNTER → 2022-01-06 | Outpatient (REF) | payer MEDICARE ==
[~2022-01-06] MED LIST changes: +CEFD300CAP PO
[2022-01-06 17:58] LABS: BASO # 0.1 10^3/uL (0.0-0.2); BASO % 0.5 % (0.0-1.0); EOS % 0.2 % (0.0-3.0); HEMATOCRIT 31.8 % (36.0-47.0); HEMOGLOBIN 9.9 g/dl (12.0-15.5); LYMPH # 0.4 10^3/uL (1.5-5.0); LYMPH % 3.2 % (24.0-44.0); MEAN CORPUSCULAR HEMOGLOBIN 31.4 pg (27.0-33.0); MEAN CORPUSCULAR HGB CONC 31.1 g/dl (32.0-36.5); MONO # 1.3 10^3/uL (0.0-0.8); MONO % 9.6 % (2.0-8.0); NEUTROPHILS # 11.2 10^3/uL (1.5-8.5); PLATELET COUNT, AUTOMATED 106 10^3/uL (150-450); RED BLOOD COUNT 3.15 10^6/uL (4.00-5.40); WHITE BLOOD COUNT 13.2 10^3/uL (4.0-10.0)
[2022-01-06 18:49] LABS: ALBUMIN 3.1 GM/DL (3.2-5.2); ALT/SGPT 19 U/L (12-78); BILIRUBIN,TOTAL 0.2 MG/DL (0.2-1.0); BLOOD UREA NITROGEN 9 MG/DL (7-18); CALCIUM LEVEL 9.2 MG/DL (8.8-10.2); CARBON DIOXIDE LEVEL 30 MEQ/L (21-32); CHLORIDE LEVEL 102 MEQ/L (98-107); GLOMERULAR FILTRATION RATE > 60.0 (>39); GLUCOSE, FASTING 98 MG/DL (70-100); MAGNESIUM LEVEL 1.4 MG/DL (1.8-2.4); POTASSIUM SERUM 3.2 MEQ/L (3.5-5.1); SODIUM LEVEL 137 MEQ/L (136-145); TOTAL PROTEIN 5.6 GM/DL (6.4-8.2)
== END ==
LOC: M SFHCPLAZ 16:47
PROVIDERS: ATTEND Physician Assistant Medical
DX: U07.1 COVID-19 (principal); R11.2 Nausea with vomiting, unspecified

== ENCOUNTER 2022-01-14 07:16 | Outpatient (RCR) | payer MEDICARE ==
[2022-01-17] MEDS ORDERED: LEVO1TAB40 (14:29)
[2022-01-17] MEDS ORDERED: WARF4TAB52 (14:29)
[2022-01-21] MEDS ORDERED: MEMA1TAB3 PO (16:39)
[2022-01-24] MEDS ORDERED: LORA1TAB4 PO ×2 (16:18→18:10)
== END 2022-01-22 ==
LOC: M ONCR 07:16
PROVIDERS: ATTEND General Practice
DX: Z51.0 Encounter for antineoplastic radiation therapy (principal); C34.11 Malignant neoplasm of upper lobe, right bronchus or lung

== ENCOUNTER → 2022-01-16 | Outpatient (REF) | payer MEDICARE ==
[~2022-01-16] MED LIST changes: +LEVO1TAB40; +WARF4TAB52
== END ==
LOC: M SFHCPLAZ 16:35
PROVIDERS: ATTEND Physician Assistant Medical
DX: R30.0 Dysuria (principal); R05.1 Acute cough

== ENCOUNTER → 2022-01-23 | Outpatient (CLI) | payer MEDICARE ==
[2022-01-23 17:42] LABS: INR 0.99; PROTHROMBIN TIME 13.5 SECONDS (12.7-14.5)
== END ==
LOC: M PLALAB 14:00
PROVIDERS: ATTEND Physician Assistant Medical
DX: Z51.81 Encounter for therapeutic drug level monitoring (principal); Z79.01 Long term (current) use of anticoagulants

== ENCOUNTER → 2022-02-03 | Outpatient (CLI) | payer MEDICARE ==
[2022-02-03 13:50] LABS: INR 1.02; PROTHROMBIN TIME 13.8 SECONDS (12.7-14.5)
== END ==
LOC: M PLALAB 11:40
PROVIDERS: ATTEND Physician Assistant Medical
DX: I48.0 Paroxysmal atrial fibrillation (principal)

== ENCOUNTER → 2022-02-13 | Outpatient (CLI) | payer MEDICARE ==
[~2022-02-13] MED LIST changes: +AMOX875T2; +IRON325T2 PO; +WARF4TAB51 PO
== END ==
LOC: M RAD 13:28
PROVIDERS: ATTEND Specialist
DX: C34.11 Malignant neoplasm of upper lobe, right bronchus or lung (principal); R59.0 Localized enlarged lymph nodes; K76.89 Other specified diseases of liver; E07.9 Disorder of thyroid, unspecified; K62.9 Disease of anus and rectum, unspecified
CPT/HCPCS: 71260; 74177; Q9963; Q9967

== ENCOUNTER → 2022-02-13 | Outpatient (CLI) | payer MEDICARE ==
[~2022-02-13] MED LIST changes: +GASTROGRAFIN SOLUTION 30ML (Q9963) As Ordered ONE; +ISOVUE-370 76% 100ML VIAL As Ordered ONE
== END ==
LOC: M RAD 14:12
PROVIDERS: ATTEND General Practice
DX: C34.11 Malignant neoplasm of upper lobe, right bronchus or lung (principal); K76.89 Other specified diseases of liver; K62.9 Disease of anus and rectum, unspecified

== ENCOUNTER → 2022-02-18 | Outpatient (CLI) | payer MEDICARE ==
[~2022-02-18] MED LIST changes: -GASTROGRAFIN SOLUTION 30ML (Q9963) As Ordered ONE; -ISOVUE-370 76% 100ML VIAL As Ordered ONE
[2022-02-18 16:28] LABS: INR 0.95; PROTHROMBIN TIME 13.1 SECONDS (12.7-14.5)
== END ==
LOC: M PLALAB 12:29
PROVIDERS: ATTEND Physician Assistant Medical
DX: I48.0 Paroxysmal atrial fibrillation (principal)

== ENCOUNTER → 2022-02-21 | Outpatient (RCR) | payer MEDICARE | LOC: M ONCR 01-28 14:56 | PROVIDERS: ATTEND General Practice | DX: Z51.0 Encounter for antineoplastic radiation therapy (principal); C79.2 Secondary malignant neoplasm of skin ==

== ENCOUNTER → 2022-03-04 | Outpatient (CLI) | payer MEDICARE ==
[2022-03-04 18:01] LABS: INR 2.29; PROTHROMBIN TIME 25.6 SECONDS (12.5-14.5)
== END ==
LOC: M PLALAB 15:45
PROVIDERS: ATTEND Physician Assistant Medical
DX: I48.0 Paroxysmal atrial fibrillation (principal)

== ENCOUNTER → 2022-03-11 | Outpatient (CLI) | payer MEDICARE | LOC: M PLAIMG 14:18 | PROVIDERS: ATTEND Physician Assistant Medical | DX: G62.9 Polyneuropathy, unspecified (principal); M25.78 Osteophyte, vertebrae; I70.0 Atherosclerosis of aorta ==

== ENCOUNTER → 2022-03-21 | Outpatient (CLI) | payer MEDICARE | LOC: M ONCR 14:40 | PROVIDERS: ATTEND General Practice | DX: M51.26 Other intervertebral disc displacement, lumbar region (principal); R63.4 Abnormal weight loss; R11.0 Nausea ==

== ENCOUNTER → 2022-04-01 | Outpatient (CLI) | payer MEDICARE ==
[~2022-04-01] MED LIST changes: +DEXA2TA PO; +ONDA8TAB8 PO
== END ==
LOC: M ONCR 15:14
PROVIDERS: ATTEND General Practice
DX: C34.11 Malignant neoplasm of upper lobe, right bronchus or lung (principal); C79.2 Secondary malignant neoplasm of skin

== ENCOUNTER → 2022-04-01 | Outpatient (CLI) | payer MEDICARE ==
[2022-04-01 16:13] LABS: INR 1.68; PROTHROMBIN TIME 20.1 SECONDS (12.5-14.5)
== END ==
LOC: M PLALAB 11:57
PROVIDERS: ATTEND Physician Assistant Medical
DX: Z51.81 Encounter for therapeutic drug level monitoring (principal); Z79.01 Long term (current) use of anticoagulants

== ENCOUNTER → 2022-04-22 | Outpatient (CLI) | payer MEDICARE ==
[~2022-04-22] MED LIST changes: +FURO20TA2 PO
== END ==
LOC: M ONCM 13:13
PROVIDERS: ATTEND Dietitian, Registered
DX: Z71.3 Dietary counseling and surveillance (principal); C34.11 Malignant neoplasm of upper lobe, right bronchus or lung; Z91.018 Allergy to other foods; Z79.01 Long term (current) use of anticoagulants; Z79.899 Other long term (current) drug therapy; Z79.84 Long term (current) use of oral hypoglycemic drugs

== ENCOUNTER → 2022-05-27 | Outpatient (CLI) | payer MEDICARE | LOC: M ONCR 14:24 | PROVIDERS: ATTEND General Practice | DX: C34.11 Malignant neoplasm of upper lobe, right bronchus or lung (principal); C79.2 Secondary malignant neoplasm of skin; Z92.3 Personal history of irradiation; Z79.891 Long term (current) use of opiate analgesic; R60.9 Edema, unspecified; M21.371 Foot drop, right foot ==